=== PATIENT | female | born 1940 | race Caucasian/White ===

== ENCOUNTER 2018-01-31 10:32 | Inpatient (IN) | payer MEDICARE, MEDICAID ==
[~2018-01-31] VITALS: Ht 167.6 cm; Wt 116.3 kg
[~2018-01-31 10:32] MED LIST: ALDACTONE50 M1; ALLOPURINOL100 MG PO; ATENOLOL100 MG; ATENOLOL100 MG PO; BUMETANIDE1 MG PO; BUMEX; CIPROFLOXACN500 MG PO; CYMBALTA60 MG PO; GABAPENTIN300 MG; GABAPENTIN300 MG PO; HUMALOG100 MG/ML; HUMALOG100 UNIT/M SC; LANTUS100 MG/ML; LANTUS100 MG/ML SC; LORTAB 7.5; METOCLOPRAM5 MG PO; NORVASC2.5 MG PO; NORVASC5 MG; OMEPRAZOLE20 M2 PO; PEPCID20 MG; PHENERGAN25 MG/TAB PO; SYNTHROID50 MCG; SYNTHROID75 MCG PO; TRAMADOL HCL50 MG; WARFARIN10 MG PO; WARFARIN2.5 MG PO; WARFARIN5 MG; WARFARIN5 MG PO; WELLBUTRIN75 MG; ZOLOFT100 MG
[2018-01-31] MEDS ORDERED: DILTIAZEM PO (10:50)
[2018-01-31] MEDS ORDERED: PEPCID20 MG PO (10:51)
[2018-01-31] MEDS ORDERED: NOVOLOG MIX SC (10:52)
[2018-01-31] MEDS ORDERED: LEVOTHYROXIN50 MCG PO (10:53)
[2018-01-31] MEDS ORDERED: SEROQUEL25 MG PO (10:53)
[2018-01-31 11:31] LABS: HEMATOCRIT 35.1 % (37.0-47.0); HEMOGLOBIN 10.6 g/dl (12.0-16.0); IMMATURE GRANULOCYTES 0.6 % (0.0-1.0); MEAN CELL VOLUME 92.6 fL CALC (80.0-100.0); MEAN CORPUSCULAR HGB CONC 30.2 g/L CALC (32.0-36.0); NEUT# 7.23 thou/uL (2.00-7.15); RED BLOOD COUNT 3.79 mill/uL (4.20-5.60); RED CELL DISTRI WIDTH 16.5 % (11.5-15.5)
[2018-01-31 11:47] LABS: INTERNATIONAL NORMALIZED RATIO 1.8 RATIO (0.7-1.3); PROTHROMBIN TIME 20.2 SECONDS (9.0-12.5)
[2018-01-31 12:03] LABS: ALBUMIN 3.9 g/dL (3.2-5.0); BILIRUBIN, TOTAL 0.8 mg/dL (0.0-1.4); CREATININE 1.2 mg/dL (0.5-1.0); POTASSIUM 4.2 mmol/l (3.5-5.1); TOTAL PROTEIN 7.4 g/dL (6.3-8.2)
[2018-01-31 14:50] VITALS: BP 138/56
[2018-01-31 16:12] LABS: INFLUENZA A NONE DETECTED (NONE DETECT); INFLUENZA B NONE DETECTED (NONE DETECT)
[2018-01-31 16:22] VITALS: BP 122/56
[2018-01-31 19:10] VITALS: BP 129/66
[2018-01-31 20:01] LABS: URINE BILIRUBIN - DIPSTICK NEGATIVE (NEGATIVE); URINE BLOOD DIPSTICK NEGATIVE (NEGATIVE); URINE COLOR YELLOW; URINE GLUCOSE - DIPSTICK NEGATIVE (NEGATIVE); URINE KETONE NEGATIVE (NEGATIVE); URINE LEUK ESTERASE NEGATIVE (Negative); URINE NITRITE - DIPSTICK NEGATIVE (Negative); URINE PROTEIN - DIPSTICK NEGATIVE (NEG-TRACE); URINE UROBILINOGEN - DIPSTICK 0.2 E.U./dL (0.2)
[2018-01-31 20:12] LABS: URINE CLARITY CLEAR
[2018-01-31 23:05] VITALS: BP 140/71
[2018-02-01 04:25] VITALS: BP 127/63
[2018-02-01 05:00] LABS: HEMATOCRIT 32.6 % (37.0-47.0); IMMATURE GRANULOCYTES 0.9 % (0.0-1.0); MEAN CELL VOLUME 91.3 fL CALC (80.0-100.0); MEAN CORPUSCULAR HGB CONC 30.7 g/L CALC (32.0-36.0); NEUT# 8.48 thou/uL (2.00-7.15); RED BLOOD COUNT 3.57 mill/uL (4.20-5.60); RED CELL DISTRI WIDTH 16.4 % (11.5-15.5)
[2018-02-01 05:18] LABS: INTERNATIONAL NORMALIZED RATIO 1.8 RATIO (0.7-1.3); PROTHROMBIN TIME 20.2 SECONDS (9.0-12.5)
[2018-02-01 05:21] LABS: ALBUMIN 3.7 g/dL (3.2-5.0); ALKALINE PHOSPHATASE 98 u/l (38-126); ANION GAP 20 (6-22 (CALC)); BILIRUBIN, TOTAL 0.6 mg/dL (0.0-1.4); BUN 23 mg/dL (8-23); BUN/CREATININE RATIO 23 (12-20 (CALC)); CARBON DIOXIDE 26 mmol/l (22-30); CHLORIDE 102 mmol/l (95-108); GFR 54 ML/MIN (>=60 (CALC)); GFR FOR AFR.AMER. > 60 ML/MIN (>=60 (CALC)); POTASSIUM 3.9 mmol/l (3.5-5.1); SGOT/AST 35 u/l (9-36); SGPT/ALT 35 u/l (11-66); SODIUM 144 mmol/l (137-146)
[2018-02-01 07:34] VITALS: BP 116/57
[2018-02-01 11:35] VITALS: BP 119/63
[2018-02-01 16:00] VITALS: BP 110/52
[2018-02-01 19:15] VITALS: BP 113/64
[2018-02-02 00:47] VITALS: BP 134/66
[2018-02-02 04:12] VITALS: BP 122/63
[2018-02-02 05:08] LABS: HEMATOCRIT 31.3 % (37.0-47.0); HEMOGLOBIN 9.7 g/dl (12.0-16.0); IMMATURE GRANULOCYTES 0.9 % (0.0-1.0); MEAN CORPUSCULAR HGB 28.2 pG CALC (26.0-32.0); NEUT# 12.98 thou/uL (2.00-7.15); RED BLOOD COUNT 3.44 mill/uL (4.20-5.60); RED CELL DISTRI WIDTH 16.6 % (11.5-15.5)
[2018-02-02 05:27] LABS: ALBUMIN 3.7 g/dL (3.2-5.0); BILIRUBIN, TOTAL 0.4 mg/dL (0.0-1.4); CREATININE 1.3 mg/dL (0.5-1.0); POTASSIUM 4.2 mmol/l (3.5-5.1)
[2018-02-02 05:40] LABS: INTERNATIONAL NORMALIZED RATIO 2.2 RATIO (0.7-1.3); PROTHROMBIN TIME 25.3 SECONDS (9.0-12.5)
[2018-02-02 08:10] VITALS: BP 115/55
[2018-02-02 11:00] VITALS: BP 106/43
[2018-02-02 15:38] VITALS: BP 101/40
[2018-02-02 17:34] LABS: INTERNATIONAL NORMALIZED RATIO 1.8 RATIO (0.7-1.3)
[2018-02-02 20:05] VITALS: BP 115/56
[2018-02-03 00:05] VITALS: BP 129/53
[2018-02-03 04:05] VITALS: BP 125/66
[2018-02-03 04:53] LABS: HEMATOCRIT 29.5 % (37.0-47.0); HEMOGLOBIN 9.1 g/dl (12.0-16.0); MEAN CELL VOLUME 91.6 fL CALC (80.0-100.0); MEAN CORPUSCULAR HGB 28.3 pG CALC (26.0-32.0); MEAN CORPUSCULAR HGB CONC 30.8 g/L CALC (32.0-36.0); NEUT# 11.72 thou/uL (2.00-7.15); RED BLOOD COUNT 3.22 mill/uL (4.20-5.60); RED CELL DISTRI WIDTH 16.7 % (11.5-15.5)
[2018-02-03 05:05] LABS: CHOLESTEROL HDL RATIO 2.7 (<4.4 (CALC)); CREATININE 1.3 mg/dL (0.5-1.0); MAGNESIUM 1.9 mg/dL (1.6-2.3); POTASSIUM 4.3 mmol/l (3.5-5.1)
[2018-02-03 07:43] VITALS: BP 125/41
[2018-02-03 09:14] LABS: INTERNATIONAL NORMALIZED RATIO 1.6 RATIO (0.7-1.3); PROTHROMBIN TIME 17.6 SECONDS (9.0-12.5)
[2018-02-03 11:36] VITALS: BP 111/45
[2018-02-03 15:13] VITALS: BP 135/63
[2018-02-03 19:56] VITALS: BP 136/70
[2018-02-04 00:03] VITALS: BP 126/45
[2018-02-04 04:22] VITALS: BP 129/58
[2018-02-04 05:01] LABS: HEMATOCRIT 29.8 % (37.0-47.0); HEMOGLOBIN 9.4 g/dl (12.0-16.0); IMMATURE GRANULOCYTES 1.7 % (0.0-1.0); MEAN CELL VOLUME 90.9 fL CALC (80.0-100.0); MEAN CORPUSCULAR HGB 28.7 pG CALC (26.0-32.0); MEAN CORPUSCULAR HGB CONC 31.5 g/L CALC (32.0-36.0); NEUT# 9.89 thou/uL (2.00-7.15); RED BLOOD COUNT 3.28 mill/uL (4.20-5.60); RED CELL DISTRI WIDTH 16.4 % (11.5-15.5)
[2018-02-04 05:14] LABS: INTERNATIONAL NORMALIZED RATIO 1.5 RATIO (0.7-1.3)
[2018-02-04 05:17] LABS: CREATININE 1.3 mg/dL (0.5-1.0); MAGNESIUM 1.7 mg/dL (1.6-2.3); POTASSIUM 4.2 mmol/l (3.5-5.1)
[2018-02-04 07:40] VITALS: BP 124/46
[2018-02-04 11:00] VITALS: BP 129/66
[2018-02-04] MEDS ORDERED: BUMETANIDE0.25 MG/ML PO (15:15)
[2018-02-04] MEDS ORDERED: MUCINEX600 MG PO (15:16)
[2018-02-04] MEDS ORDERED: BIOTUSSIN PO (15:16)
[2018-02-04] MEDS ORDERED: MEDDOSEPAK PO (15:17)
[2018-02-04] MEDS ORDERED: DOXYCYCL HYC100 MG PO (15:18)
[2018-02-04] MEDS ORDERED: BUMEX1 M1 PO (15:27)
== END 2018-02-04 16:30 | disposition home health service (06) | DRG 291 ==
LOC: ED 10:32 → ED-I 13:32 → ED 13:47 → MS2 13:48
PROVIDERS: Emergency Medicine; Nurse Practitioner; Nurse Practitioner Family; ADMIT Internal Medicine; ATTEND Internal Medicine
DX: I13.0 Hypertensive heart and chronic kidney disease with heart failure and stage 1 through stage 4 chronic kidney disease, or unspecified chronic kidney disease (principal); I50.23 Acute on chronic systolic (congestive) heart failure; J96.01 Acute respiratory failure with hypoxia; N17.9 Acute kidney failure, unspecified; J44.1 Chronic obstructive pulmonary disease with (acute) exacerbation; J20.9 Acute bronchitis, unspecified; J44.0 Chronic obstructive pulmonary disease with (acute) lower respiratory infection; E11.22 Type 2 diabetes mellitus with diabetic chronic kidney disease; E66.01 Morbid (severe) obesity due to excess calories; I27.20 Pulmonary hypertension, unspecified; Z68.41 Body mass index [BMI] 40.0-44.9, adult; E11.42 Type 2 diabetes mellitus with diabetic polyneuropathy; N18.3 Chronic kidney disease, stage 3 (moderate); G47.33 Obstructive sleep apnea (adult) (pediatric); I25.10 Atherosclerotic heart disease of native coronary artery without angina pectoris; E78.5 Hyperlipidemia, unspecified; D63.8 Anemia in other chronic diseases classified elsewhere; E03.9 Hypothyroidism, unspecified; I65.23 Occlusion and stenosis of bilateral carotid arteries; F32.9 Major depressive disorder, single episode, unspecified; I48.2 Chronic atrial fibrillation; M15.9 Polyosteoarthritis, unspecified; Z79.4 Long term (current) use of insulin; Z79.01 Long term (current) use of anticoagulants; Z95.0 Presence of cardiac pacemaker; Z99.3 Dependence on wheelchair; Z89.422 Acquired absence of other left toe(s); Z86.711 Personal history of pulmonary embolism; Z99.81 Dependence on supplemental oxygen; Z95.820 Peripheral vascular angioplasty status with implants and grafts; Z87.440 Personal history of urinary (tract) infections; Z89.421 Acquired absence of other right toe(s)
CPT/HCPCS: G0378

== ENCOUNTER 2018-06-25 08:59 | Outpatient (REF) | payer MEDICARE, MEDICAID ==
[~2018-06-25 08:59] MED LIST changes: +BIOTUSSIN PO; +BUMETANIDE0.25 MG/ML PO; +BUMEX1 M1 PO; +DILTIAZEM PO; +DOXYCYCL HYC100 MG PO; +LEVOTHYROXIN50 MCG PO; +MEDDOSEPAK PO; +MUCINEX600 MG PO; +NOVOLOG MIX SC; +PEPCID20 MG PO; +SEROQUEL25 MG PO
[2018-06-25 09:38] LABS: HEMATOCRIT 38.2 % (37.0-47.0); HEMOGLOBIN 12.6 g/dl (12.0-16.0)
--- NOTE | 2018-06-25 10:16 | NUR ---
Patient is here for Procrit injection Current Procrit dose held , Previous Procrit dose 20,000 units on 05/28/18 Current Hgb on 06/25/18 is 12.6 Previous Hgb on 06/11/18 was 11.5 Previous Iron study on 06/25/18 was 32% saturation and ferritin = pending Next Iron Study on 09/25/18 Next Hgb due on 09/25/18 Notes: No procrit was given today. Reassessment scheduled for 09/25/18. Blood pressure on 06/25/18 was 123/68. QOL assessment Side effects: No Dose adjustments: No New dose:
[2018-06-25 11:29] VITALS: BP 123/68
== END 2018-06-25 11:31 | disposition home or self-care (01) ==
LOC: INF 08:59
PROVIDERS: ATTEND Internal Medicine
DX: D63.1 Anemia in chronic kidney disease (principal); N18.3 Chronic kidney disease, stage 3 (moderate); D50.9 Iron deficiency anemia, unspecified

== ENCOUNTER → 2018-12-09 | Outpatient (REF) | payer MEDICARE, MEDICAID ==
[2018-12-09 10:47] LABS: CREATININE 1.1 mg/dL (0.5-1.0); POTASSIUM 4.6 mmol/l (3.5-5.1)
== END | disposition home or self-care (01) ==
LOC: LAB 09:42
PROVIDERS: ATTEND Internal Medicine
DX: I10 Essential (primary) hypertension (principal); R53.83 Other fatigue; E11.65 Type 2 diabetes mellitus with hyperglycemia

== ENCOUNTER 2019-03-19 09:58 | Inpatient (IN) | payer MEDICARE, MEDICAID ==
[~2019-03-19] VITALS: Ht 167.6 cm; Wt 122.1 kg
[2019-03-19] MEDS ORDERED: COUMADIN5 MG PO (10:42)
[2019-03-19] MEDS ORDERED: ALBUTEROL SUL0.083 % IN (10:43)
[2019-03-19] MEDS ORDERED: GABAPENTIN300 M2 PO (10:43)
[2019-03-19] MEDS ORDERED: SERTRALINE100 MG PO (10:44)
[2019-03-19] MEDS ORDERED: IPRATROPIUM BR0.02 % IN (10:45)
[2019-03-19] MEDS ORDERED: PRALUENT75 MG/ML SC (10:46)
[2019-03-19] MEDS ORDERED: ENTRESTO 24-261 TAB PO (10:47)
[2019-03-19] MEDS ORDERED: COREG25 MG PO (10:47)
[2019-03-19 11:10] LABS: HEMATOCRIT 29.7 % (37.0-47.0); HEMOGLOBIN 9.5 g/dl (12.0-16.0); IMMATURE GRANULOCYTES 0.7 % (0.0-5.0); MEAN CELL VOLUME 95.2 fL CALC (80.0-100.0); MEAN CORPUSCULAR HGB 30.4 pG CALC (26.0-32.0); NEUT# 6.5 thou/uL (2.00-7.15); RED BLOOD COUNT 3.12 mill/uL (4.20-5.60); RED CELL DISTRI WIDTH 14.6 % (11.5-15.5)
[2019-03-19 11:18] LABS: URINE BLOOD DIPSTICK SMALL (NEGATIVE); URINE COLOR YELLOW; URINE GLUCOSE - DIPSTICK NEGATIVE (NEGATIVE); URINE KETONE NEGATIVE (NEGATIVE); URINE LEUK ESTERASE MODERATE (NEGATIVE); URINE NITRITE - DIPSTICK POSITIVE (Negative); URINE PH 5.5 (4.5-8.0); URINE PROTEIN - DIPSTICK TRACE mg/dL (NEG-TRACE); URINE UROBILINOGEN - DIPSTICK 0.2 E.U./dL (0.2)
[2019-03-19 11:22] LABS: URINE BILIRUBIN - DIPSTICK NEGATIVE (NEGATIVE)
[2019-03-19 11:27] LABS: URINE BACTERIA MANY hpf; URINE WBC 50-100 WBC/hpf (0-5)
[2019-03-19 11:28] LABS: URINE RBC 0-2 RBC/hpf (0-5)
[2019-03-19 11:29] LABS: ALBUMIN 3.7 g/dL (3.2-5.0); BILIRUBIN, TOTAL 0.7 mg/dL (0.0-1.4); CREATININE 1.3 mg/dL (0.5-1.0); TOTAL PROTEIN 6.9 g/dL (6.3-8.2)
[2019-03-19 14:43] VITALS: BP 134/40
[2019-03-19 14:44] LABS: PROTHROMBIN TIME 139.2 SECONDS (9.0-12.5)
[2019-03-19 19:25] VITALS: BP 130/60
[2019-03-20] VITALS (11 sets, daily range): BP systolic 116–157; BP diastolic 35–62
[2019-03-20 06:01] LABS: HEMATOCRIT 28.2 % (37.0-47.0); HEMOGLOBIN 8.9 g/dl (12.0-16.0); IMMATURE GRANULOCYTES 0.5 % (0.0-5.0); MEAN CELL VOLUME 95.9 fL CALC (80.0-100.0); MEAN CORPUSCULAR HGB 30.3 pG CALC (26.0-32.0); MEAN CORPUSCULAR HGB CONC 31.6 g/L CALC (32.0-36.0); NEUT# 10.17 thou/uL (2.00-7.15); RED BLOOD COUNT 2.94 mill/uL (4.20-5.60); RED CELL DISTRI WIDTH 14.6 % (11.5-15.5)
[2019-03-20 06:02] LABS: BILIRUBIN, TOTAL 0.6 mg/dL (0.0-1.4); CREATININE 1.1 mg/dL (0.5-1.0); MAGNESIUM 1.7 mg/dL (1.6-2.3); POTASSIUM 3.8 mmol/l (3.5-5.1); TOTAL PROTEIN 5.9 g/dL (6.3-8.2)
[2019-03-20 09:46] LABS: INTERNATIONAL NORMALIZED RATIO > 29.6 RATIO (0.7-1.3); PROTHROMBIN TIME > 300.0 SECONDS (9.0-12.5)
[2019-03-21 00:27] VITALS: BP 119/49
[2019-03-21 03:51] VITALS: BP 150/61
[2019-03-21 05:04] LABS: HEMATOCRIT 25.7 % (37.0-47.0); HEMOGLOBIN 8.2 g/dl (12.0-16.0); IMMATURE GRANULOCYTES 0.9 % (0.0-5.0); MEAN CORPUSCULAR HGB 30.9 pG CALC (26.0-32.0); MEAN CORPUSCULAR HGB CONC 31.9 g/L CALC (32.0-36.0); NEUT# 8.28 thou/uL (2.00-7.15); RED BLOOD COUNT 2.65 mill/uL (4.20-5.60); RED CELL DISTRI WIDTH 14.2 % (11.5-15.5)
[2019-03-21 05:22] LABS: ANION GAP 12 (6-22 (CALC)); BUN 25 mg/dL (8-23); BUN/CREATININE RATIO 24 (12-20 (CALC)); CARBON DIOXIDE 24 mmol/l (22-30); CHLORIDE 109 mmol/l (95-108); GFR 53 ML/MIN (>=60 (CALC)); GFR FOR AFR.AMER. > 60 ML/MIN (>=60 (CALC)); MAGNESIUM 1.7 mg/dL (1.6-2.3); POTASSIUM 3.6 mmol/l (3.5-5.1); SODIUM 141 mmol/l (137-146)
[2019-03-21 05:25] LABS: INTERNATIONAL NORMALIZED RATIO 1.4 RATIO (0.7-1.3); PROTHROMBIN TIME 14.6 SECONDS (9.0-12.5)
[2019-03-21 07:53] VITALS: BP 134/57
[2019-03-21 11:08] LABS: ALBUMIN 2.9 g/dL (3.2-5.0); TOTAL PROTEIN 5.8 g/dL (6.3-8.2)
[2019-03-21 11:09] LABS: AMYLASE 139 u/l (30-110); BILIRUBIN, TOTAL 1.2 mg/dL (0.0-1.4); LIPASE 196 u/l (23-300)
[2019-03-21 11:17] VITALS: BP 118/49
[2019-03-21 14:36] VITALS: BP 113/48
[2019-03-21 19:05] VITALS: BP 135/58
[2019-03-22 00:16] VITALS: BP 117/56
[2019-03-22 04:22] VITALS: BP 133/50
[2019-03-22 05:29] LABS: HEMATOCRIT 23.9 % (37.0-47.0); HEMOGLOBIN 7.6 g/dl (12.0-16.0); IMMATURE GRANULOCYTES 0.9 % (0.0-5.0); MEAN CORPUSCULAR HGB 30.5 pG CALC (26.0-32.0); MEAN CORPUSCULAR HGB CONC 31.8 g/L CALC (32.0-36.0); NEUT# 6.11 thou/uL (2.00-7.15); RED BLOOD COUNT 2.49 mill/uL (4.20-5.60); RED CELL DISTRI WIDTH 14.2 % (11.5-15.5)
[2019-03-22 05:37] LABS: ALBUMIN 2.6 g/dL (3.2-5.0); BILIRUBIN, TOTAL 0.9 mg/dL (0.0-1.4); CREATININE 1.2 mg/dL (0.5-1.0); POTASSIUM 3.2 mmol/l (3.5-5.1); TOTAL PROTEIN 5.4 g/dL (6.3-8.2)
[2019-03-22 05:41] LABS: AMYLASE 38 u/l (30-110); LIPASE 95 u/l (23-300)
[2019-03-22 05:42] LABS: INTERNATIONAL NORMALIZED RATIO 1.2 RATIO (0.7-1.3); PROTHROMBIN TIME 12.7 SECONDS (9.0-12.5)
[2019-03-22 09:09] VITALS: BP 116/72
[2019-03-22 12:00] VITALS: BP 128/42
[2019-03-22 13:17] LABS: HEMOGLOBIN 8.7 g/dl (12.0-16.0)
[2019-03-22 16:00] VITALS: BP 126/53
[2019-03-22 19:35] VITALS: BP 149/58
[2019-03-23 00:10] VITALS: BP 144/52
[2019-03-23 03:30] VITALS: BP 132/54
[2019-03-23 05:21] LABS: HEMATOCRIT 24.2 % (37.0-47.0); HEMOGLOBIN 7.9 g/dl (12.0-16.0); IMMATURE GRANULOCYTES 1.3 % (0.0-5.0); MEAN CELL VOLUME 93.8 fL CALC (80.0-100.0); MEAN CORPUSCULAR HGB 30.6 pG CALC (26.0-32.0); MEAN CORPUSCULAR HGB CONC 32.6 g/L CALC (32.0-36.0); NEUT# 4.54 thou/uL (2.00-7.15); RED BLOOD COUNT 2.58 mill/uL (4.20-5.60); RED CELL DISTRI WIDTH 14.1 % (11.5-15.5)
[2019-03-23 05:51] LABS: ALBUMIN 2.7 g/dL (3.2-5.0); BILIRUBIN, TOTAL 0.8 mg/dL (0.0-1.4); CREATININE 1.3 mg/dL (0.5-1.0); MAGNESIUM 1.6 mg/dL (1.6-2.3); POTASSIUM 3.1 mmol/l (3.5-5.1); TOTAL PROTEIN 5.5 g/dL (6.3-8.2)
[2019-03-23 08:00] VITALS: BP 120/73
[2019-03-23 11:49] VITALS: BP 115/44
== END 2019-03-23 16:00 | disposition home or self-care (01) | DRG 439 ==
LOC: ED 09:58 → ED-I 12:30 → ED 12:41 → MS2 12:51
PROVIDERS: Family Medicine; Nurse Practitioner Family; ADMIT Internal Medicine Nephrology; ATTEND Internal Medicine Nephrology
PROC: 30233K1 Transfusion of Nonautologous Frozen Plasma into Peripheral Vein, Percutaneous Approach (ICD-10-PCS; principal; 2019-03-20)
PROC: 30233K1 Transfusion of Nonautologous Frozen Plasma into Peripheral Vein, Percutaneous Approach (ICD-10-PCS; 2019-03-20)
DX: K85.10 Biliary acute pancreatitis without necrosis or infection (principal); N39.0 Urinary tract infection, site not specified; I13.0 Hypertensive heart and chronic kidney disease with heart failure and stage 1 through stage 4 chronic kidney disease, or unspecified chronic kidney disease; N17.9 Acute kidney failure, unspecified; I50.22 Chronic systolic (congestive) heart failure; L97.318 Non-pressure chronic ulcer of right ankle with other specified severity; Z68.41 Body mass index [BMI] 40.0-44.9, adult; K80.70 Calculus of gallbladder and bile duct without cholecystitis without obstruction; N18.3 Chronic kidney disease, stage 3 (moderate); E11.22 Type 2 diabetes mellitus with diabetic chronic kidney disease; E11.622 Type 2 diabetes mellitus with other skin ulcer; E11.51 Type 2 diabetes mellitus with diabetic peripheral angiopathy without gangrene; E11.40 Type 2 diabetes mellitus with diabetic neuropathy, unspecified; D63.8 Anemia in other chronic diseases classified elsewhere; J44.9 Chronic obstructive pulmonary disease, unspecified; E03.9 Hypothyroidism, unspecified; N20.0 Calculus of kidney; R79.1 Abnormal coagulation profile; B37.2 Candidiasis of skin and nail; T45.515A Adverse effect of anticoagulants, initial encounter; I25.10 Atherosclerotic heart disease of native coronary artery without angina pectoris; I27.20 Pulmonary hypertension, unspecified; G47.33 Obstructive sleep apnea (adult) (pediatric); I48.0 Paroxysmal atrial fibrillation; E66.01 Morbid (severe) obesity due to excess calories; I08.1 Rheumatic disorders of both mitral and tricuspid valves; Z95.820 Peripheral vascular angioplasty status with implants and grafts; Z89.422 Acquired absence of other left toe(s); Z79.4 Long term (current) use of insulin; Z95.810 Presence of automatic (implantable) cardiac defibrillator; Z79.01 Long term (current) use of anticoagulants
CPT/HCPCS: J0692; J1650; Q9967

== ENCOUNTER 2020-04-24 10:34 | Inpatient (IN) | payer MEDICARE, MEDICAID ==
[~2020-04-24] VITALS: Ht 167.6 cm; Wt 120.0 kg
[~2020-04-24 10:34] MED LIST changes: +ALBUTEROL SUL0.083 % IN; +COREG25 MG PO; +COUMADIN5 MG PO; +ENTRESTO 24-261 TAB PO; +GABAPENTIN300 M2 PO; +IPRATROPIUM BR0.02 % IN; +PRALUENT75 MG/ML SC; +SERTRALINE100 MG PO
[2020-04-27 09:01] LABS: HEMATOCRIT 29.6 % (37.0-47.0); HEMOGLOBIN 8.8 g/dl (12.0-16.0); IMMATURE GRANULOCYTES 0.7 % (0.0-5.0); MEAN CELL VOLUME 92.8 fL CALC (80.0-100.0); MEAN CORPUSCULAR HGB 27.6 pG CALC (26.0-32.0); MEAN CORPUSCULAR HGB CONC 29.7 g/dL CAL (32.0-36.0); NEUT# 3.94 thou/uL (2.00-7.15); RED BLOOD COUNT 3.19 mill/uL (4.20-5.60); RED CELL DISTRI WIDTH 15.7 % (11.5-15.5)
[2020-04-27 09:30] VITALS: BP 156/56
--- NOTE | 2020-04-27 09:30 | NUR ---
PT ARRIVED TO UNIT VIA PERSON WHEELCHAIR DIRECT ADMIT FROM DR SHI OFFICE WITH DAUGHTER. STOOD AND PIVOTED TO BED; ALERT AND ORIENTED X 3. ASSISTED INTO GOWN AND BACK IN BED. C/O SOME PAIN TO LEFT FOOT; BILATERAL FEET HAVE ARIA WRAP DRESSINGS THAT ARE CDI. RESPIRATONS EVEN AND UNLABORED ON ROOM AIR. ASSESSMENT COMPLETE UPON ARRIVAL. VSS. ORIENTED TO ROOM AND CALL LIGHT SYSTEM. PLAN OF CARE DISCUSSED. PT ENCOURAGED TO VERBALIZE CONCERNS. STATES UNDERSTANDING. SAFETY MEASURES IN PLACE. CALL LIGHT WITHIN REACH.
[2020-04-27 09:50] LABS: INTERNATIONAL NORMALIZED RATIO 1.5 RATIO (0.7-1.3); PROTHROMBIN TIME 14.2 SECONDS (9.0-12.5)
[2020-04-27 09:53] LABS: ALBUMIN 3.6 g/dL (3.2-5.0); BILIRUBIN, TOTAL 0.5 mg/dL (0.0-1.4); C-REACTIVE PROTEIN 8.4 mg/dL (0-0.9); CREATININE 1.2 mg/dL (0.5-1.0); POTASSIUM 4.4 mmol/l (3.5-5.1); TOTAL PROTEIN 6.9 g/dL (6.3-8.2)
[2020-04-27 10:20] LABS: TSH, 3RD GENERATION 1.67 uIU/mL (0.47 - 4.68)
--- NOTE | 2020-04-27 10:33 | NUR ---
DR. BAUER AT BEDSIDE FOR DRESSING CHANGES TO BILATERAL FEET. PHOTOS TAKEN AND PLACED IN CHART. APPLIED IODINE, GAUZE, KERLEX, AND ARIA WRAP; ORDERS TO CHANGE DAILY. WRITTEN CONSENT FOR BEDSIDE DEBRIDEMENT OF DIABETIC FOOT ULCER.
--- NOTE | 2020-04-27 10:52 | NUR ---
OFF UNIT VIA STRETCHER TO RADIOLOGY FOR PICC LINE INSERTION.
--- NOTE | 2020-04-27 11:36 | NUR ---
BACK TO ROOM FROM RADIOLOGY. PICC LINE TO WILLIAMS; DRESSING CDI AND APPEARS HEALTHY.
[2020-04-27 12:00] VITALS: BP 125/40
--- NOTE | 2020-04-27 12:10 | NUR ---
OLU APPLIED AND PT EDUCATED; HAS URINARY INCONTINENCE. HEEL PROTECTORS ALSO APPLIED AND BLE OFFLOADED WITH PILLOWS.
[2020-04-27] MEDS ORDERED: LANTUS100 UNIT/M SC (13:19)
[2020-04-27] MEDS ORDERED: NOVOLOG100 UNIT/M (13:20)
--- NOTE | 2020-04-27 13:56 | NUR ---
ANTHROPOLOGY PROFESSOR AT BEDSIDE FOR EVAL AND ASSESSMENT.
--- NOTE | 2020-04-27 16:03 | NUR ---
S: ANA PAULA CAN is a 79 F who presents with Osteomyelitis. She has a history of Atrial fibrillation, CHF, T2 Diabetes, Hypothyroidism, COPD, Chronic kidney disease, HTN, Morbid obesity, Obstructive sleep apnea, Neuropathy, Irritable bowel syndrome. All medications in patient's chart were reviewed. O: VS: BP 125/40 mmHg, P 68 bpm, RR 18 breaths/min, T 96F W 120kg, AdjBW 83.6kg, HT66 inches, Scr= 1.2mg/dL, CrCl= 49.3ml/min P: Vancomycin ordered for pharmacy to dose. Start Vancomycin 1250mg IV Q24H. Vancomycin trough is drawn before the 4th dose on 04/30/20 at 1630. Vancomycin goal trough is between 15-20 mcg/ml. Pharmacy will follow and or advise on antibiotics use as needed.
--- NOTE | 2020-04-27 16:04 | NUR ---
DR. TRUJILLO AT VIRTUAL BEDSIDE FOR ID CONSULT.
--- NOTE | 2020-04-27 17:18 | NUR ---
VANCO INFUSING INTO WILLIAMS PICC LINE; FLUSHES WELL WITH GOOD BLOOD RETURN. PT ENCOURAGED TO REPOSITION SELF IN BED; WILL ASSIST WITH TURNING.
[2020-04-27 17:23] VITALS: BP 114/51
[2020-04-27 19:07] VITALS: BP 114/41
--- NOTE | 2020-04-28 02:58 | NUR ---
RESTING AWAKE IN BED AT SHIFT CHANGE BROWSING CELL PHONE. PUREWICK CATH IN PLACE, DRESSING TO BILATERAL HEELS IN PLACE. C/O LEFT HEEL PAIN TOLERABLE REFUSED PRN MEDICATION FOR PAIN. DURING NIGHT RESIDENTS CANISTER FELL AND URINE FELL ALL OVER FLOOR. HOUSEKEEPING CLEANED AREA.
[2020-04-28 05:16] VITALS: BP 107/44
[2020-04-28 05:52] LABS: HEMATOCRIT 28.8 % (37.0-47.0); HEMOGLOBIN 8.5 g/dl (12.0-16.0); MEAN CELL VOLUME 93.5 fL CALC (80.0-100.0); MEAN CORPUSCULAR HGB 27.6 pG CALC (26.0-32.0); MEAN CORPUSCULAR HGB CONC 29.5 g/dL CAL (32.0-36.0); RED BLOOD COUNT 3.08 mill/uL (4.20-5.60); RED CELL DISTRI WIDTH 15.9 % (11.5-15.5)
--- NOTE | 2020-04-28 05:55 | NUR ---
PT RESTING IN BED, EASILY AWAKEN WHEN ENTERING ROOM. PT PLEASANT.
[2020-04-28 06:15] LABS: CREATININE 1.4 mg/dL (0.5-1.0); POTASSIUM 4.3 mmol/l (3.5-5.1)
[2020-04-28 06:32] LABS: MAGNESIUM 2.1 mg/dL (1.6-2.3)
--- NOTE | 2020-04-28 07:45 | NUR ---
DR SANTOS AT BEDSIDE DISCUSSING POC WITH PT
[2020-04-28 07:52] VITALS: BP 132/37
--- NOTE | 2020-04-28 07:52 | NUR ---
RECIEVED REPORT FROM Lionel SPEARS. PT RESTING IN LOW DOWLERS POSITIION UPON ENTERING ROOM. INTRODUED SELF TO PT AND DISSCUSSED POC. ASSESSMENT AND VITALS COMPLETED AT THIS TIME. BP 132/37, HR 70, 02 98% ON ROOM AIR. RESPIRATIONS ARE EVEN AND UNLABROED WIHT NO SIGNS OF DISTRESS. LUNG SOUNDS ARE CLEAR, HEART RHYTHM NORMAL, PT DOES PRESENT WITH PACEMAKER. BOWEL SOUNDS ARE ACTIVE IN ALL QUADRANTS. RADIAL AND PEDAL PULSES ARE STRONG WITH NORMAL CAPILLARY REFILL. SINGLE LUMEN PIC IN WILLIAMS, PIC WAS GOOD BLOOD FLOW AND APPEARS TO BE PATENT. SKIN IS WARM AND DRY. PT PRESENTS WITH BILATERAL DIABETIC FOOT ULCERS. DRESSINGS ARE CDI AT THIS TIME. PT COMPLAINS OF 6/10 PAIN, TYLENOL TO BE ADMINISTERD.INFORMED PT OF HOME MEDICATIONENTRESO THAT WAS NEEDED TO BE BROUGHT IN, PT VERBALIZED UNDERSTANDING AND SAID HER DAUGHTER WOULD BE BRINGING IT. PT DENIES OF ANY OTHER PAINS OR DISCOMFORTS AT THIS TIME. ALL SAFTEY PRECAUTIONS ARE IN PLACE WITH CALL LIGHT IN REACH. WILL CONTINUE TO MONITOR
--- NOTE | 2020-04-28 08:07 | NUR ---
DR LAY AT [facility] POC
--- NOTE | 2020-04-28 11:01 | NUR ---
REASSESSMEN TOF PAIN AT THIS TIME. RESULTING IN 11/29. RESPIARTIONS ARE EVEN AND UNLABROED WITH NO SIGNS OF DISTRESS. ALL SAFETY PRECAUTIONS ARE IN PLACE WITH CALL LIGHT IN REACH. WILL CONTINUE TO MONITOR
--- NOTE | 2020-04-28 12:00 | NUR ---
PT SLEEPING IN LOW FOWLERS POSITION. RESPIRATIONS ARE EVEN AND UNLABORED WITH NO SIGNS OF DISTRESS. NO SIGNS OF ANY PAIN OR DISCOMFORTS. ALL SAFETY PRECAUTIONS IN PLACE WITH CALL LIGHT IN REACH.
[2020-04-28 15:21] VITALS: BP 129/67
--- NOTE | 2020-04-28 16:02 | NUR ---
PT SLEEPING IN LOW FOWLERS. RESPIRATIONS EVEN AND UNLABORED WITH NO SIGNS OF DISTRESS. NO SIGNS OF ANY PAIN. ALL SAFETY PRECAUTIONS IN PLACE.CALL LIGHT IN REACH.
[2020-04-28 20:02] VITALS: BP 105/46
--- NOTE | 2020-04-28 20:45 | NUR ---
PT AWAKE IN BED. ALERT AND ORIENTED. REQUIRES ASSIST X1 WITH CARE.
[2020-04-29 04:02] VITALS: BP 95/57
[2020-04-29 06:08] LABS: INTERNATIONAL NORMALIZED RATIO 1.2 RATIO (0.7-1.3); PROTHROMBIN TIME 11.6 SECONDS (9.0-12.5)
[2020-04-29 06:15] LABS: CREATININE 1.7 mg/dL (0.5-1.0); POTASSIUM 4.1 mmol/l (3.5-5.1)
--- NOTE | 2020-04-29 06:18 | NUR ---
PT RESTING WELL IN BED. EASILY AWAKEN WHEN ENTERING ROOM. DRESSING CHANGES TO BILATERAL FEET.
[2020-04-29 07:53] VITALS: BP 102/47
--- NOTE | 2020-04-29 07:57 | NUR ---
RECIEVED REPORT FROM WAYNE LOTT. PT RESTING IN SEMI FOWLERS POSITION UPON ENTERING ROOM.INTROUCED SELF TO PT AND DISCUSSED POC. ASSESSMENT AND VITALS COMPLETED. RESPIRATIONS ARE EVEN AND UNLABORED WITH NO SIGNS OF DSITRESS. LUNG SOUNDS ARE CLEAR. HEART RHYTHM IS NORMAL. BOWEL SOUNDS ARE ACTIVE IN ALL QUADRANTS, LAST REPORTED BM 04/26/20, OFFERED MOM TO ASSIST WITH BM. PT REFUSED. RADIAL PULSES ARE STRONG WITH NORMAL CAPILLARY REFILL. UNABLE TO FEEL PEDAL PULSES DUE TO DRESSINGS. PT PRESETS WITH BILATERAL DIABETIC OSTEOMYELITIS. DRESSINGS ARE CDI. PT HAS AMPUTATED TOES ON LEFT FOOT. SKIN IS WARM AND DRY WITH DISCOLORATION TO BLL. PT COMPLAINS OF 7/10 PAIN IN HEELS, TYLENOL TO BE ADMINSTERED. HEEL PROTECTORS APPLIED AND LEGS ELVATED WITH PILLOWS. PT DENIES ANY OTHER PAINS OR DISCOMFORTS.ALL SAFETY PREACUTIONS ARE IN PLACE WITH CALL LIGHT IN REACH. WILL CONTINUE TO MONITOR
--- NOTE | 2020-04-29 08:00 | NUR ---
ATTEMPTED TO FLUSH PICC LINE BY BOTH TITO AND MARSHA Vigil RN. UNSUCCESSFUL. 1V PORTABKLE CHEST X RAY ORDERED. JAGDISH ANRP NOTIFIED.
--- NOTE | 2020-04-29 12:00 | NUR ---
IV CHEST X RAY CONFIRMED PLACEMENT OF PICC. CATHFLO TO BE ADMINISTERED. RESPIRATIONS ARE EVEN AND UNLABROED WITH NO SIGNS OF DISTRESS. ALL SAFETY PRECAURIONS ARE IN PLACE WITH CALL LIGHT IN REACH. WILL CONTINUE TO MONITOR
--- NOTE | 2020-04-29 13:32 | NUR ---
BHAVESH ADMINISTERED BY MARILU TO ASSIST IN PICC .
[2020-04-29 14:59] VITALS: BP 107/47
--- NOTE | 2020-04-29 15:38 | NUR ---
PT SLEEPING IN SEMI FOWLERS POSITION. RESPIRATIONS EVEN AND UNLABORED WITH NO SIGNS OF DISTRESS. NO SIGNS OF ANY PAIN OR DISCOMFORTS. ALL SAFTY PRECAUTIONS ARE IN PLACE WITH CALL LIGHT IN REACH. WILL CONTINUE TO MONITOR
[2020-04-29 19:28] VITALS: BP 95/42
--- NOTE | 2020-04-29 22:00 | NUR ---
PT AWAKE IN LAYING IN BED. DENIES ANY PAIN AT TIME OF WRITING. G.ho.st PATENT. WILL CONTINUE TO MONITOR FOR ANY NEW CHANGES IN CONDITION.
[2020-04-30] VITALS (9 sets, daily range): BP systolic 92–124; BP diastolic 40–53
--- NOTE | 2020-04-30 04:28 | NUR ---
PT RESTINGT IN BED WELL WITH CPAP IN PLACE. NO C/O PAIN AT THIS TIME. WILL CONTINUE TO MONITOR FOR ANY NEW CHANGES IN CONDITION.
[2020-04-30 04:47] LABS: HEMATOCRIT 25.3 % (37.0-47.0); HEMOGLOBIN 7.7 g/dl (12.0-16.0); MEAN CELL VOLUME 90.7 fL CALC (80.0-100.0); MEAN CORPUSCULAR HGB 27.6 pG CALC (26.0-32.0); MEAN CORPUSCULAR HGB CONC 30.4 g/dL CAL (32.0-36.0); RED BLOOD COUNT 2.79 mill/uL (4.20-5.60); RED CELL DISTRI WIDTH 15.7 % (11.5-15.5)
[2020-04-30 05:15] LABS: BILIRUBIN, TOTAL 0.3 mg/dL (0.0-1.4); CREATININE 1.9 mg/dL (0.5-1.0); POTASSIUM 3.8 mmol/l (3.5-5.1); TOTAL PROTEIN 5.8 g/dL (6.3-8.2)
[2020-04-30 05:24] LABS: ALBUMIN 2.8 g/dL (3.2-5.0)
--- NOTE | 2020-04-30 08:07 | NUR ---
PT SITTING IN BED. A&O X3. NO DISTRESS NOTED. DRESSINGS TO BILATERAL FEET IN PLACE, CDI. REDDNESS NOTED WITH SLIGHT RASH TO BACK AND ARMS. BARRIER CREAM APPLIED TO BUTTOCKS AND BACK. PICC LINE IN PLACE TO WILLIAMS, FLUSHED AND ASPIRATED WITH EASE. PUREWICK IN PLACE. NO OTHER NEEDS AT THIS TIME. ASSESSMENT COMPLETED. DISCUSSED POC. CALL LIGHT IN REACH. CONTINUE TO MONITOR.
--- NOTE | 2020-04-30 13:30 | NUR ---
CITY ASSESSOR AT BEDSIDE OBTAINING VENIPUNCTURE FOR TYPE AND CROSS
--- NOTE | 2020-04-30 14:50 | NUR ---
CONSENT OBTAINED FOR TRANSUFSION OF BLOOD PRODUCT
--- NOTE | 2020-04-30 15:37 | NUR ---
BLOOD REC FROM JS, VERIFIED BLOOD COMPONENT AND PT
--- NOTE | 2020-04-30 15:45 | NUR ---
BLOOD TRANSFUSION INITIATED. BLOOD COMPONENT VERIFIED WITH MARILU ARIAS.
--- NOTE | 2020-04-30 18:18 | NUR ---
BLOOD TRANSUFSION COMPLETE. PT TOLERATED WELL. NO S/S OF REACTION. VSS. 123/50 , HR 73, RR 18, O2 @ 97% VIA RA
--- NOTE | 2020-04-30 20:30 | NUR ---
PT ASSESSMENT COMPLETED, IV FLUSHED, ANTIBIOTIC THERAPY COMPLETE AT THIS TIME.
--- NOTE | 2020-04-30 23:00 | NUR ---
PT MEDICATED ORDERS PROVIDE, POC DISCUSSED, PT PROVIDED SNACK AND CUP FOR HEARING AIDES/AIDE PROVIDED AT BEDSIDE. PT DENIES ANY OTHER NEEDS AT THIS TIME. IV ANTIBIOTIC THERAPY ADMINISTERED TO PICC TO WILLIAMS/SITE APPEARS HEALTHY.
[2020-05-01 04:00] VITALS: BP 97/42
--- NOTE | 2020-05-01 04:27 | NUR ---
PT MEDICATED W/SYNTHROID AND BLOOD DRAWN FOR LABS VIA PICC LINE, FLUSHED PATENT. PT BLOOD SUGAR CHECKED AT 94 VIA ACCU-CHECK.
[2020-05-01 05:22] LABS: HEMATOCRIT 26.3 % (37.0-47.0); HEMOGLOBIN 8.2 g/dl (12.0-16.0); IMMATURE GRANULOCYTES 0.6 % (0.0-5.0); MEAN CELL VOLUME 90.1 fL CALC (80.0-100.0); MEAN CORPUSCULAR HGB 28.1 pG CALC (26.0-32.0); MEAN CORPUSCULAR HGB CONC 31.2 g/dL CAL (32.0-36.0); NEUT# 7.02 thou/uL (2.00-7.15); RED BLOOD COUNT 2.92 mill/uL (4.20-5.60); RED CELL DISTRI WIDTH 15.3 % (11.5-15.5)
[2020-05-01 05:47] LABS: CREATININE 1.8 mg/dL (0.5-1.0); POTASSIUM 3.9 mmol/l (3.5-5.1)
[2020-05-01 05:52] LABS: INTERNATIONAL NORMALIZED RATIO 1.2 RATIO (0.7-1.3)
[2020-05-01 07:30] VITALS: BP 101/43
--- NOTE | 2020-05-01 07:30 | NUR ---
PT SLEEPING IN BED, HOME CPAP MACHINE IN PLACE. AWAKENED TO COMPLETE ASSESSMENT. PT STILL REDDENED IN APPEARANCE, WITH SLIGHT RASH NOTICED. DRESSING TO BILATERAL FEET CDI. PUREWICK IN PLACE. ASSESSMENT COMPLETED. DISCUSSED POC. CALL LIGHT IN REACH, CONTINUE TO MONITOR.
--- NOTE | 2020-05-01 09:32 | NUR ---
CALLED DR. VERDUZCO OFFICE REGARDING THIS PT. SPOKE TO WENDY AND GAVE INFORMATION ON THIS PT. WENDY STATED SHE WILL GIVE IT TO HIM DIRECTLY WHEN HE COMES OUT OF A ROOM.
--- NOTE | 2020-05-01 11:35 | NUR ---
PT note Patient is screened for PT intervention. I went ahead and spoke with her about transitional moovement. She expressed she did not want PT intervention at this time. I reviewed the importance of remaining mobile and she seemed to understand. She is contaent with being bed bound and or chairfast for now as she has too much painw with transititonal movements
--- NOTE | 2020-05-01 12:47 | NUR ---
DR TRUJILLO CONSULT IN PROGRESS
--- NOTE | 2020-05-01 13:54 | NUR ---
S: ANA PAULA CAN is a 79 F who presents with Osteomyelitis. . She has a history of atrial fibrillation, congestive heart failure, type 2 diabetes, hypothyroidism, COPD, HTN, morbid obesity, obstructive sleep apnea, neuropathy, and irritable bowel syndrome. All medications in patient's chart were reviewed. O: VS: BP 101/43 mmHg, P 71 bpm, RR 18 breaths/min, T 99.4 F W 120 kg, HT 167.64 cm, Scr= 1.8 mg/dL, CrCl= 49.2 ml/min A: P: Patient is on Ceftriaxone 2g IV Q24H. Vancomycin ordered for pharmacy to dose. Trough level 9 on 04/30/2020 Continue Vancomycin 1250 mg IV Q24H. Vancomycin trough is drawn before the 4th dose on 05/03/2020 1630. Vancomycin goal trough is between 10-20 mcg/ml. Pharmacy will follow and or advise on antibiotics use as needed.
[2020-05-01 15:00] VITALS: BP 91/25
--- NOTE | 2020-05-01 16:10 | NUR ---
PT SITTING IN BED. NO DISTRESS NOTED. CALL LIGHT IN REACH. CONTINUE TO MONITOR.
--- NOTE | 2020-05-01 19:00 | NUR ---
RECEIVED REPORT FROM NURSE GARCIA PATIENT LAYING IN BED, WATCHING TV, BREATHING EVEN UNLABORED, CALL LIGHT AT REACH.
[2020-05-01 19:08] VITALS: BP 115/31
--- NOTE | 2020-05-01 21:00 | NUR ---
PATIENT ALERT ORIENTED ABLE TO MAKE NEEDS KNONW, WITH SINGLE LUMEN PICC ON WILLIAMS PATENT FLUSHES WELL, HOOKED TO CPAP PATRICIA BREATHING EVEN UNLABORED, BS 139, C/O PAIN ON LEFT HEEL PRN TRAMADOL GIVEM WILL REEVALUATE.
--- NOTE | 2020-05-02 | NUR ---
PATIENT APPEARS STO BE SLEPPING WITH EYES CLOSED, BREATHING EVEN UNLABORED CALL LIGHT AT REACH.
[2020-05-02 04:10] VITALS: BP 100/44
--- NOTE | 2020-05-02 04:50 | NUR ---
PATIENT C/O OF ITCHINESS ON BOTH ARMS, WILL MEDEICATE, PATIENT AWAKE AT THIS TIME,DENIES PAIN CALL LIGHT AT REACH.
[2020-05-02 05:44] LABS: URINE BILIRUBIN - DIPSTICK NEGATIVE (NEGATIVE); URINE BLOOD DIPSTICK TRACE-INTACT (NEGATIVE); URINE CLARITY CLEAR; URINE COLOR YELLOW; URINE GLUCOSE - DIPSTICK NEGATIVE (NEGATIVE); URINE KETONE NEGATIVE (NEGATIVE); URINE LEUK ESTERASE NEGATIVE (Negative); URINE NITRITE - DIPSTICK NEGATIVE (Negative); URINE PH 5.5 (4.5-8.0); URINE PROTEIN - DIPSTICK NEGATIVE (NEG-TRACE); URINE UROBILINOGEN - DIPSTICK 0.2 E.U./dL (0.2)
[2020-05-02 05:50] LABS: HEMATOCRIT 27.1 % (37.0-47.0); HEMOGLOBIN 8.3 g/dl (12.0-16.0); MEAN CELL VOLUME 91.9 fL CALC (80.0-100.0); MEAN CORPUSCULAR HGB 28.1 pG CALC (26.0-32.0); MEAN CORPUSCULAR HGB CONC 30.6 g/dL CAL (32.0-36.0); RED BLOOD COUNT 2.95 mill/uL (4.20-5.60); RED CELL DISTRI WIDTH 15.7 % (11.5-15.5)
[2020-05-02 06:17] LABS: ALBUMIN 2.7 g/dL (3.2-5.0); BILIRUBIN, TOTAL 0.2 mg/dL (0.0-1.4); CREATININE 2.2 mg/dL (0.5-1.0); POTASSIUM 4.1 mmol/l (3.5-5.1); TOTAL PROTEIN 5.5 g/dL (6.3-8.2)
[2020-05-02 06:29] LABS: C-REACTIVE PROTEIN 20.6 mg/dL (0-0.9)
[2020-05-02 07:11] VITALS: BP 101/42
--- NOTE | 2020-05-02 07:11 | NUR ---
PT SITTING IN BED. A&O X3. NO DISTRESS NOTED. HOME CPAP IN PLACE. PT REPORTS NO PAIN AT THIS TIME. PUREWICK IN PLACE. REDDENED APPEARANCE STILL NOTED. BILATERAL FEET DRESSINGS IN PLACE CDI WITH DRESSING CHANGE DONE IN THE AM BY PREVIOUS SHIFT. NO OTHER NEEDS AT THIS TIME. ASSESSMENT COMPLETED. DISCUSSED POC. CALL LIGHT IN REACH. CONTINUE TO MONITOR.
[2020-05-02 07:31] LABS: INTERNATIONAL NORMALIZED RATIO 1.2 RATIO (0.7-1.3); PROTHROMBIN TIME 11.6 SECONDS (9.0-12.5)
--- NOTE | 2020-05-02 13:04 | NUR ---
PT SITTING IN BED. NO DISTRESS OR NEEDS AT THIS TIME. CALL LIGHT IN REACH. CONTINUE TO MONITOR.
[2020-05-02 15:16] VITALS: BP 115/45
--- NOTE | 2020-05-02 16:10 | NUR ---
PT SLEEPING IN BED. NO DISTRESS NOTED. RESP EVEN AND UNLABORED. CONTINUE TO MONITOR.
[2020-05-02 18:41] VITALS: BP 117/50
--- NOTE | 2020-05-02 19:06 | NUR ---
RECEIVED REPORT FROM NURSE GARCIA PATIENT RESTING IN BED,HOOKED TO O2 @2LPM VIA NC, BREATHING SHALLOW UNLABORED CALL LIGHT AT REACH.
--- NOTE | 2020-05-02 21:00 | NUR ---
PATIENT ALERT ORIENTED ABLE TO MAKE NEEDS KNOWN, WITH SINGLE LUMEN PICC ON WILLIAMS WITH AN ONGOING NS @ 75 CC/HR INFUSING WELL LBM 04/30, BS 124, PATIENT TURNED AND REPOSITIONED, PERICARE DONE.
--- NOTE | 2020-05-03 | NUR ---
PATIENT APPEARS TO BE SLEEPING WITH EYES CLOSED, HOOKED TO CPAP CALL LIGHT AT REACH.
--- NOTE | 2020-05-03 04:00 | NUR ---
PATIENT APPEARS TO BE SLEEPING WITH EYES CLOSED, WEARS CPAP, BREATHING UNLABORED CALL LIGHT AT REACH.
[2020-05-03 04:30] VITALS: BP 97/52
[2020-05-03 06:01] LABS: HEMOGLOBIN 8.2 g/dl (12.0-16.0); MEAN CELL VOLUME 91.8 fL CALC (80.0-100.0); MEAN CORPUSCULAR HGB 27.9 pG CALC (26.0-32.0); MEAN CORPUSCULAR HGB CONC 30.4 g/dL CAL (32.0-36.0); RED BLOOD COUNT 2.94 mill/uL (4.20-5.60); RED CELL DISTRI WIDTH 15.4 % (11.5-15.5)
[2020-05-03 06:30] LABS: POTASSIUM 4.2 mmol/l (3.5-5.1)
[2020-05-03 06:37] LABS: INTERNATIONAL NORMALIZED RATIO 1.2 RATIO (0.7-1.3); PROTHROMBIN TIME 12.3 SECONDS (9.0-12.5)
--- NOTE | 2020-05-03 07:30 | NUR ---
BLOOD SUGAR @ 52MG/DL, PATIENT IS ASYMPTOMATIC, AWAKE, NOT IN DISTRESS, PATIENT GIVEN ORANGE JUICE AND SNACK, WILL RECHECK BLOOD SUGAR.
[2020-05-03 08:11] VITALS: BP 105/56
--- NOTE | 2020-05-03 08:11 | NUR ---
RECIEVED REPORT FROM HUGO MANDEL. PT RESTING IN LOW FOWLERS POTIION UPON ENTERING . INTORDUCED SELF TO PT AND DISCUSSED POC. ASSESSMENT AND VITALS COMPLETED AT THIS TIME. RESPIRATIONS ARE EVEN AND UNLABORED WITH NO SIGNS OF DISTRESS. HEART RHYTHM IS NORMAL . BOWEL SOUNDS ACTIVE IN ALL QUADRANTS WITH LAST REPORTED BM 04/30/20. RADIAL PULSES ARE STRONG WITH NORMAL CAPILLARY REFILL. PEDAL PULSES UNABLE TO FEEL DUE TO DRESSINGS. DRESSINGS CDI AT THIS TIME. PT COMPLAINS OF 7/10 PAIN. ULTRAM TO BE ADMINISTERED WITH MORNING MEDS. PT PRESENTS TO REDNESS TO COCCYX. EDUCATED PT THAT WE NEED TO BE TURNING Q2H TO PREVENT SKIN BREAKDOWN. PT VERBLAIZED UNDERSTANDING. SINGLE LUMEN PICC RUNNING WITH NS AT 75 ORDERED, SITE APPEARS HEALTHY AND PATENT.ALL SAFETY PRECAUTIONS ARE IN PLACE WITH CALL LIGHT IN REACH. WILL CONTINUE TO MONITOR.
--- NOTE | 2020-05-03 09:49 | NUR ---
PT. Note Miss Rudolph was supine in bed upon arriving. Pt. did not agree to participate in therapy session. She stated im feeling tired, and old, I just want relax and not do therapy.
--- NOTE | 2020-05-03 10:52 | NUR ---
REASSESSMENT OF PAIN AT THIS TIME RESULTING IN 03/01. PT STATES THAT PAIN MEDICTAION IS WORKING AND SHES "OK". RESPIRTAIOINS ARE EVEN AND UNLABORED WITH NO SIGNS OF DISTRESS. all safetyu preacutions are in place with call light in REACH. EILL CONTINUE TO MONITOR
--- NOTE | 2020-05-03 12:00 | NUR ---
PT RESTING IN LOW FOWLERS POSITION WITH EYES CLOSED. RESPIRATIONS ARE EVEN AND UNLABORED WITH NO SIGNS OF DISTRESS. ALL SAFETY PRECAUTIONS ARE IN PLACE WITH CALL LIGHT IN REACH. WILL COTNINUE TO MONITOR
[2020-05-03 16:00] VITALS: BP 99/46
--- NOTE | 2020-05-03 16:00 | NUR ---
PT RSTING IN SEMI FOWLERS POSITION WITH EYES CLOSED. RESPIRATIONS ARE EVEN AND UNALBORED WITH NO SIGNS OF DISTRESS. ALL ASAFETY PRECAUTIONS ARE IN PLACE WITH CALL LIGHT IN REACH. WILL CONTINUE TO MONITOR
--- NOTE | 2020-05-03 17:01 | NUR ---
SUPERVISOR CENTRAL SUPPLY AT BEDSIDE AT THIS TIME.
--- NOTE | 2020-05-03 17:40 | NUR ---
PT note- attempted second eval. The patient adamantly refused stating she wanted no physical therapy at all.
[2020-05-03 18:54] VITALS: BP 120/50
--- NOTE | 2020-05-03 21:20 | NUR ---
PT RESTING IN BED, ALERT AND ORIENTED. RESPIRATIONS EVEN AND UNLABORED ON O2 @ 2L VIA NC. LUNGS SOUND DIMINISHED. PEDAL PULSES WEAK. PT DENIES ANY PAIN OR DISCOMFORT AT THIS TIME. CHANGED DRESSING TO LOWER EXTREMETIES, PER ORDERS. PT TOLERATED WELL. SAFETY PRECAUTIONS IN PLACE. WILL CONTINUE TO MONITOR.
--- NOTE | 2020-05-04 00:15 | NUR ---
PT RESTING IN BED, NO S/S OF DISTRESS AT THIS TIME. WILL CONTINUE TO MONITOR.
--- NOTE | 2020-05-04 04:01 | NUR ---
PT RESTING IN BED, FREE FROM DISTRESS AT THIS TIME.
[2020-05-04 05:07] VITALS: BP 111/54
[2020-05-04 06:04] LABS: HEMATOCRIT 30.1 % (37.0-47.0); IMMATURE GRANULOCYTES 1.3 % (0.0-5.0); MEAN CELL VOLUME 91.2 fL CALC (80.0-100.0); MEAN CORPUSCULAR HGB 27.3 pG CALC (26.0-32.0); MEAN CORPUSCULAR HGB CONC 29.9 g/dL CAL (32.0-36.0); RED BLOOD COUNT 3.3 mill/uL (4.20-5.60); RED CELL DISTRI WIDTH 15.4 % (11.5-15.5)
[2020-05-04 06:38] LABS: ALBUMIN 2.7 g/dL (3.2-5.0); CREATININE 1.8 mg/dL (0.5-1.0); POTASSIUM 4.8 mmol/l (3.5-5.1)
[2020-05-04 08:24] VITALS: BP 109/50
--- NOTE | 2020-05-04 08:24 | NUR ---
RECIEVED REPORT FROM HUGO LUKE. PT RESTING IN SEMI FOWLERS POSITION WITH EYES CLOSED UPON ENTERING ROOM. RESPIRATIONS ARE EVEN AND UNLABORED, PT DOES HAS WHEEZING WHEN JUST TALKING, PT DENIES ANY SOB. HEART RHYTHM IS NORMAL. BOWEL SOUNDS ARE ACTIVE IN ALL QUADRANTS, LAST REPORTED BM 08/. PT REFUSED ANY THING TO HELP ASSIST WITH BM . RADIAL PULSES ARE STRONG WITH NORMAL CAPILLARY REFILL. UNABKE TO PALPATE PEDAL PULSES DUE TO DRESSINGS. PT PRSENTS WITH DIABETIC BILATERAL OSTEOMYELITIS, DRESSING ARE CDI AT THIS TIME. PT HAS ALL TOES AMPUTATED FROM LEFT FOOT AND 2 TOES AMPUATTED FROM RIGH FOOT. SINGLE LUMEN PICC IN WILLIAMS, SITE APPEARS HEALTHY AND PATENT WITH GOOD BLOOD RETURN. PT COMPLAINS OG 6/10 PAIN IN BLL AND BACK, ULTRAM TO BE ADMINISTERED. PURER WHICH IN PLACE WITH SUCTION GOING. PT DENIES ANY OTHER PAINS OR DISCOMFORTS AT THIS TIME. ALL SAFETY PRECAUTIONS ARE IN PLACE WITHC ALL LIGHT IN REACH.WILL CONTINUE TO MONITOR
--- NOTE | 2020-05-04 08:39 | NUR ---
DR DONOVAN AT BEDSIDE DISCUSSING POC AT THIS TIME.
--- NOTE | 2020-05-04 10:45 | NUR ---
CHANGING OF DRESSINGS AT THIS TIME. WOUNDS CLEASED WITH NS AND IODINE, GAUZE PLACED AND WRAPPED WITH KRELEX AND ARIA WRAPPED ORDERED. PT TOLERATED WELL. BLL ELEVATED WITH PILLOWS AND PEEL PROTECTORS APPLIED. REASSESSMENT OF PAIN AT THIS TIME. RESULTING IN 12/30. PT DENIES ANY PAIN OR DISCOMFORTS AT THIS TIME. ALL SAFTEY PREACUTIONSA RE IN PLACE WITH CALL LIGHT IN REACH. WILL COTNINUE TO MONITOR
--- NOTE | 2020-05-04 12:18 | NUR ---
PT SITTING IN HIGH FOWLERS POSITION TURNED TO RIGH WIT PILLOWS UNDER BOTTOM TO ASSIST WITH REDDED COCCYX. PT EATING LUNCH AT THIS TIME. RESPIRATIONS ARE EVEN AND UNLABROED WIOTH NO SIGNS OF DISTRESS. PT DENIES ANY PAIN OR DISCOMFORTS AT THIS TIME. ALL SAEFTY PRECAUTIONS ARE IN PLACE WITH CALL LIGHT IN REACH. WILL CONTINUE TO MONITOR
--- NOTE | 2020-05-04 12:45 | NUR ---
DR CRAIG AT BEDSIDE DISCUSSING POC
[2020-05-04 14:38] LABS: INTERNATIONAL NORMALIZED RATIO 1.3 RATIO (0.7-1.3); PROTHROMBIN TIME 13.2 SECONDS (9.0-12.5)
[2020-05-04 15:44] VITALS: BP 105/47
--- NOTE | 2020-05-04 16:00 | NUR ---
PT RESTING IN SEMI FOWLERS POSITION WITH EYES CLSED. RESPIRATIONS ARE EVEN AND UNLABROED WITH NO SIGNS OF DISTESS. ALL SAFETY PRECAUTOINS ARE IN PLACE WITH CALL LIGHT IN RECH
[2020-05-04 19:00] VITALS: BP 115/52
--- NOTE | 2020-05-04 20:20 | NUR ---
PT RESTING IN BED, RESPIRATIONS EVEN AND UNLABORED ON RA. LUNGS SOUND DIMINISHED. PEDAL PULSES WEAK. PT REPORTS MODERATE GENERALIZED PAIN, PT TO BE MEDICATED PER EMAR ORDERS. PT GIVEN A CLEANED UP AND REPOSITONED, PERWICK IN PLACE, NYSTATIN POWDER APPLIED UNDER THE BREAST. ASSISTED PT WITH CPAP. SAFETY PRECAUTIONS IN PLACE. WILL CONTINUE TO MONITOR.
--- NOTE | 2020-05-05 00:36 | NUR ---
PT RESTING IN BED, NO S/S OF DISTRESS AT THIS TIME. SAFETY PRECAUTIONS IN PLACE. WILL CONTINUE TO MONITOR.
--- NOTE | 2020-05-05 04:25 | NUR ---
PT RESTING IN BED. PICC DRESSING CHANGED AT THIS TIME. PT TOLERATED WELL. SAFETY PRECAUTIONS IN PLACE. DRESSING APPLIED TO PT BOTTOM. WILL CONTINUE TO MONITOR.
[2020-05-05 04:49] VITALS: BP 113/55
[2020-05-05 05:28] LABS: HEMATOCRIT 25.7 % (37.0-47.0); HEMOGLOBIN 7.8 g/dl (12.0-16.0); MEAN CELL VOLUME 92.4 fL CALC (80.0-100.0); MEAN CORPUSCULAR HGB 28.1 pG CALC (26.0-32.0); MEAN CORPUSCULAR HGB CONC 30.4 g/dL CAL (32.0-36.0); RED BLOOD COUNT 2.78 mill/uL (4.20-5.60); RED CELL DISTRI WIDTH 15.4 % (11.5-15.5)
[2020-05-05 05:49] LABS: MAGNESIUM 2.3 mg/dL (1.6-2.3)
[2020-05-05 05:50] LABS: ALBUMIN 2.7 g/dL (3.2-5.0); CREATININE 1.5 mg/dL (0.5-1.0); POTASSIUM 4.4 mmol/l (3.5-5.1)
[2020-05-05 05:53] LABS: INTERNATIONAL NORMALIZED RATIO 1.5 RATIO (0.7-1.3); PROTHROMBIN TIME 14.7 SECONDS (9.0-12.5)
--- NOTE | 2020-05-05 08:30 | NUR ---
DR DONOVAN AT BEDSIDE DISCUSSING POC
[2020-05-05 08:38] VITALS: BP 135/52
--- NOTE | 2020-05-05 08:47 | NUR ---
RECIEVED REPORT FROM HUGO LUKE. PT IN HIGH FOWLERS POSITION EATING BREAKFAST UPON ENTERING ROOM. INTRODUCED SELF TO PT AND DISCUSSED POC. ASSESSMENT AND VITALS COMPLETED AT THIS TIME. RESPIRATIONS ARE EVEN AND UNLABORED WITH NO DISTRESS. LUNG SOUNDS ARE DIMINISHED, PT DENIES SOB. HEART RHYTHM IS NORMAL. BOWEL SOUNDS ARE ACTIVE IN ALL QUADRANTS, LAST REPORTED BM 05/04/20. PICC LINE IN URA FLUSHED WITH GOOD BLOOD RETURN. PT COMPLAINS OF 10/10 PAIN IN COCCYX, ULTRAM TO BE ADMINISTERED.DESSSING ON COCCYX CDI AT THIS TIME. PT PRESENTS WITH REDDNESS AND BREAKDOWN UNDER BREAST AND STOMACH FOLD, NYSTATIN TO BE APPLIED. PT DENIES ANY OTHER NEEDS OR CONCERNS AT THIS TIME. ALL SAFETY PRECAUTIONS ARE IN LACE WITHC ALL LIGHT IN REACH. WILL CONTINUE TO MONITOR
[2020-05-05 09:35] VITALS: BP 135/52
[2020-05-05] MEDS ORDERED: CUBICIN500 MG IV (11:44)
[2020-05-05] MEDS ORDERED: NYSTOP100000 UNI TOP (11:44)
[2020-05-05] MEDS ORDERED: COUMADIN5 MG PO (11:45)
--- NOTE | 2020-05-05 12:15 | NUR ---
PT RESTING IN SEMI FOWLERS POSITION WATCHING TV WITH DAUGHTER AT BEDSIDE. RESPIRATIONS ARE EVEN AND UNLABORE DWIHT NO SIGNS OF DISRES. ALL SAFTEY PRECAUTIONS ARE IN PLACE WITH CALL LIGHT IN REACH. WILL COTNINUE TO MONITOR
--- NOTE | 2020-05-05 13:54 | NUR ---
PT EDUCTAED ON DISCHARGE INSTRUCTIONS AND NEW MED; NYSTATIN, CUBICIN AND WARFARIN. PT VERBALIZED UNDERSTANDING. AWAITING FOR CASE MANAGMENT TO ARRANGE ORDERS FOR IV ANTIBIOTICS. ALL SAFETY PRECAUTIONS REMAIN IN PLACE WITH CALL LIGHT IN REACH. WILL CONTINUE TO MONITOR
--- NOTE | 2020-05-05 14:50 | NUR ---
Discharge instructions given. Patient verbalizes understanding of same. Discharged in stable condition via Wheelchair to Home with family. All belongings sent with pt. PT LEFT VIA WHEELCHAIR ACCOMPAINED BY MADHURI IN STABLE CONDITION . PT LEFT WITH ALL BELONGS INCLUDING CPAP ANND DISCHARGE INSTRUCTIONS
--- NOTE | 2020-05-05 15:35 | NUR ---
PT RESTING IN SEMI FOWLERS POSITION WATCHING TV WITH DAUGHTER AT BEDSIDE. RESPIRATIONS ARE EVEN AND UNALBROED WIHT NO ISGNS OF DSITRESS. ALLSAFTEY PREACIUTIONS ARE IN PLACE AWAITING FOR DISCHARGE INSTRUCTIONS AT THIS TIME. WILL CONTINUE TO MONITOR
== END 2020-05-05 14:50 | disposition home health service (06) | DRG 638 ==
LOC: MS2 04-27 08:18 → EDSTATUS 04-27 09:00 → DI 04-27 09:00 → MS2 05-01 13:18
PROVIDERS: Internal Medicine; Internal Medicine Nephrology; Nurse Practitioner; Nurse Practitioner Family; ADMIT Internal Medicine; ATTEND Internal Medicine
PROC: 02HV33Z Insertion of Infusion Device into Superior Vena Cava, Percutaneous Approach (ICD-10-PCS; principal; 2020-04-27)
PROC: B518ZZA Fluoroscopy of Superior Vena Cava, Guidance (ICD-10-PCS; 2020-04-27)
PROC: 0JDQ3ZZ Extraction of Right Foot Subcutaneous Tissue and Fascia, Percutaneous Approach (ICD-10-PCS; 2020-04-27)
PROC: 30233N1 Transfusion of Nonautologous Red Blood Cells into Peripheral Vein, Percutaneous Approach (ICD-10-PCS; 2020-04-30)
DX: E11.69 Type 2 diabetes mellitus with other specified complication (principal); M86.672 Other chronic osteomyelitis, left ankle and foot; M86.671 Other chronic osteomyelitis, right ankle and foot; I13.0 Hypertensive heart and chronic kidney disease with heart failure and stage 1 through stage 4 chronic kidney disease, or unspecified chronic kidney disease; Z68.41 Body mass index [BMI] 40.0-44.9, adult; L97.428 Non-pressure chronic ulcer of left heel and midfoot with other specified severity; L97.518 Non-pressure chronic ulcer of other part of right foot with other specified severity; L97.328 Non-pressure chronic ulcer of left ankle with other specified severity; L97.318 Non-pressure chronic ulcer of right ankle with other specified severity; E22.2 Syndrome of inappropriate secretion of antidiuretic hormone; E11.621 Type 2 diabetes mellitus with foot ulcer; E11.622 Type 2 diabetes mellitus with other skin ulcer; E11.51 Type 2 diabetes mellitus with diabetic peripheral angiopathy without gangrene; E11.22 Type 2 diabetes mellitus with diabetic chronic kidney disease; N18.3 Chronic kidney disease, stage 3 (moderate); I50.9 Heart failure, unspecified; E11.40 Type 2 diabetes mellitus with diabetic neuropathy, unspecified; L27.1 Localized skin eruption due to drugs and medicaments taken internally; T36.1X5A Adverse effect of cephalosporins and other beta-lactam antibiotics, initial encounter; T36.8X5A Adverse effect of other systemic antibiotics, initial encounter; N17.0 Acute kidney failure with tubular necrosis; I95.9 Hypotension, unspecified; E86.9 Volume depletion, unspecified; D63.1 Anemia in chronic kidney disease; I48.91 Unspecified atrial fibrillation; E03.9 Hypothyroidism, unspecified; J44.9 Chronic obstructive pulmonary disease, unspecified; E66.01 Morbid (severe) obesity due to excess calories; G47.33 Obstructive sleep apnea (adult) (pediatric); I25.10 Atherosclerotic heart disease of native coronary artery without angina pectoris; Z95.0 Presence of cardiac pacemaker; Z79.01 Long term (current) use of anticoagulants; Z79.4 Long term (current) use of insulin; Z89.412 Acquired absence of left great toe; Z89.422 Acquired absence of other left toe(s); Z95.820 Peripheral vascular angioplasty status with implants and grafts; Z88.0 Allergy status to penicillin; Z11.59 Encounter for screening for other viral diseases
CPT/HCPCS: G0378; G0379; J0878; J1650; J1756; J2997; J3370; P9016; Q3014; Q5106 EC

== ENCOUNTER 2022-12-26 11:52 | Inpatient (IN) | payer MEDICARE, MEDICAID ==
[~2022-12-26] VITALS: Ht 167.6 cm; Wt 109.7 kg
[2022-12-26] VITALS (12 sets, daily range): BP systolic 90–119; BP diastolic 38–68
[~2022-12-26 11:52] MED LIST changes: +CUBICIN500 MG IV; +LANTUS100 UNIT/M SC; +NOVOLOG100 UNIT/M; +NYSTOP100000 UNI TOP
[2022-12-26 13:18] LABS: URINE BILIRUBIN - DIPSTICK NEGATIVE (NEGATIVE); URINE BLOOD DIPSTICK NEGATIVE (NEGATIVE); URINE COLOR YELLOW; URINE GLUCOSE - DIPSTICK NEGATIVE (NEGATIVE); URINE KETONE NEGATIVE (NEGATIVE); URINE LEUK ESTERASE TRACE (NEGATIVE); URINE PH 5.5 (4.5-8.0); URINE PROTEIN - DIPSTICK NEGATIVE (NEG-TRACE); URINE UROBILINOGEN - DIPSTICK 0.2 E.U./dL (0.2)
[2022-12-26 13:23] LABS: BASO% 0.5 % (0-3); EOS% 3.7 % (0-8); HEMATOCRIT 31.2 % (37.0-47.0); HEMOGLOBIN 9.2 g/dl (12.0-16.0); IMMATURE GRANULOCYTES 0.5 % (0.0-5.0); LYMPH% 19.8 % (15-41); MEAN CELL VOLUME 93.4 fL CALC (80.0-100.0); MEAN CORPUSCULAR HGB 27.5 pG CALC (26.0-32.0); MEAN CORPUSCULAR HGB CONC 29.5 g/dL CAL (32.0-36.0); MONO% 6.4 % (2-13); NEUT# 5.71 thou/uL (2.00-7.15); NEUT% 69.1 % (42-76); RED BLOOD COUNT 3.34 mill/uL (4.20-5.60)
[2022-12-26 13:24] LABS: URINE NITRITE - DIPSTICK NEGATIVE (Negative)
[2022-12-26 13:35] LABS: POTASSIUM 4.9 mmol/l (3.5-5.1)
[2022-12-26 13:40] LABS: CREATININE 1.4 mg/dL (0.5-1.0)
[2022-12-26 13:41] LABS: ALBUMIN 3.6 g/dL (3.2-5.0); BILIRUBIN, TOTAL 0.3 mg/dL (0.02-1.3)
[2022-12-26] MEDS ORDERED: REMERON7.5 MG PO (14:07)
[2022-12-26 17:52] LABS: INTERNATIONAL NORMALIZED RATIO 2.7 RATIO (0.7-1.3); PROTHROMBIN TIME 25.5 SECONDS (9.0-12.5)
[2022-12-27] VITALS (7 sets, daily range): BP systolic 73–119; BP diastolic 32–58
[2022-12-27 05:47] LABS: BASO% 0.5 % (0-3); EOS% 4.1 % (0-8); HEMATOCRIT 27.3 % (37.0-47.0); HEMOGLOBIN 8.1 g/dl (12.0-16.0); IMMATURE GRANULOCYTES 0.5 % (0.0-5.0); LYMPH% 21.5 % (15-41); MEAN CELL VOLUME 94.5 fL CALC (80.0-100.0); MEAN CORPUSCULAR HGB CONC 29.7 g/dL CAL (32.0-36.0); MONO% 6.7 % (2-13); NEUT# 4.11 thou/uL (2.00-7.15); NEUT% 66.7 % (42-76); RED BLOOD COUNT 2.89 mill/uL (4.20-5.60)
[2022-12-27 06:02] LABS: INTERNATIONAL NORMALIZED RATIO 2.9 RATIO (0.7-1.3); PROTHROMBIN TIME 27.9 SECONDS (9.0-12.5)
[2022-12-27 06:09] LABS: BILIRUBIN, TOTAL 0.2 mg/dL (0.02-1.3); CREATININE 1.3 mg/dL (0.5-1.0); POTASSIUM 4.6 mmol/l (3.5-5.1); TOTAL PROTEIN 6.1 g/dL (6.3-8.2)
[2022-12-28 04:00] VITALS: BP 105/35
[2022-12-28 04:18] VITALS: BP 105/35
[2022-12-28 05:34] LABS: HEMATOCRIT 27.9 % (37.0-47.0); HEMOGLOBIN 8.4 g/dl (12.0-16.0); MEAN CELL VOLUME 93.6 fL CALC (80.0-100.0); MEAN CORPUSCULAR HGB 28.2 pG CALC (26.0-32.0); MEAN CORPUSCULAR HGB CONC 30.1 g/dL CAL (32.0-36.0); RED BLOOD COUNT 2.98 mill/uL (4.20-5.60)
[2022-12-28 05:51] LABS: ALBUMIN 3.2 g/dL (3.2-5.0); CREATININE 1.1 mg/dL (0.5-1.0); MAGNESIUM 2.1 mg/dL (1.6-2.3); POTASSIUM 4.7 mmol/l (3.5-5.1); TOTAL PROTEIN 6.5 g/dL (6.3-8.2)
[2022-12-28 06:10] LABS: BILIRUBIN, TOTAL 0.1 mg/dL (0.02-1.3)
[2022-12-28 19:00] VITALS: BP 109/29
[2022-12-28 19:27] VITALS: BP 109/29
[2022-12-29] VITALS (7 sets, daily range): BP systolic 99–125; BP diastolic 21–43
[2022-12-29 05:21] LABS: BASO% 0.5 % (0-3); HEMATOCRIT 27.4 % (37.0-47.0); IMMATURE GRANULOCYTES 0.5 % (0.0-5.0); LYMPH% 29.6 % (15-41); MEAN CELL VOLUME 93.8 fL CALC (80.0-100.0); MEAN CORPUSCULAR HGB 27.4 pG CALC (26.0-32.0); MEAN CORPUSCULAR HGB CONC 29.2 g/dL CAL (32.0-36.0); MONO% 8.2 % (2-13); NEUT# 3.71 thou/uL (2.00-7.15); NEUT% 57.2 % (42-76); RED BLOOD COUNT 2.92 mill/uL (4.20-5.60); RED CELL DISTRI WIDTH 16.1 % (11.5-15.5)
[2022-12-29 05:47] LABS: ALBUMIN 3.1 g/dL (3.2-5.0); BILIRUBIN, TOTAL 0.1 mg/dL (0.02-1.3); CREATININE 1.3 mg/dL (0.5-1.0); POTASSIUM 4.9 mmol/l (3.5-5.1); TOTAL PROTEIN 6.5 g/dL (6.3-8.2)
[2022-12-30] VITALS (7 sets, daily range): BP systolic 104–137; BP diastolic 30–48
[2022-12-30 05:47] LABS: INTERNATIONAL NORMALIZED RATIO 1.3 RATIO (0.7-1.3); PROTHROMBIN TIME 12.4 SECONDS (9.0-12.5)
[2022-12-30] MEDS ORDERED: ERTAPENEM1 GM IV (09:27)
[2022-12-31 00:33] VITALS: BP 137/54
[2022-12-31 04:05] VITALS: BP 129/47
[2022-12-31 05:32] LABS: HEMATOCRIT 27.7 % (37.0-47.0); HEMOGLOBIN 8.2 g/dl (12.0-16.0); MEAN CELL VOLUME 93.6 fL CALC (80.0-100.0); MEAN CORPUSCULAR HGB 27.7 pG CALC (26.0-32.0); MEAN CORPUSCULAR HGB CONC 29.6 g/dL CAL (32.0-36.0); RED BLOOD COUNT 2.96 mill/uL (4.20-5.60)
[2022-12-31 05:33] LABS: INTERNATIONAL NORMALIZED RATIO 1.2 RATIO (0.7-1.3); PROTHROMBIN TIME 11.9 SECONDS (9.0-12.5)
[2022-12-31 05:35] LABS: ALBUMIN 3.3 g/dL (3.2-5.0); CREATININE 1.5 mg/dL (0.5-1.0); MAGNESIUM 2.1 mg/dL (1.6-2.3); POTASSIUM 4.9 mmol/l (3.5-5.1); TOTAL PROTEIN 6.8 g/dL (6.3-8.2)
[2022-12-31 05:36] LABS: BILIRUBIN, TOTAL 0.3 mg/dL (0.02-1.3)
[2022-12-31 06:30] VITALS: BP 116/46
[2022-12-31 10:00] VITALS: BP 141/52
== END 2022-12-31 13:39 | disposition home health service (06) | DRG 690 ==
LOC: ED 11:52 → ED-I 12:55 → ED 13:23 → MS2 13:24
PROVIDERS: Family Medicine; Internal Medicine; Nurse Practitioner Family; ADMIT Internal Medicine; ATTEND Internal Medicine
PROC: 02HV33Z Insertion of Infusion Device into Superior Vena Cava, Percutaneous Approach (ICD-10-PCS; principal; 2022-12-31)
PROC: B518ZZA Fluoroscopy of Superior Vena Cava, Guidance (ICD-10-PCS; 2022-12-31)
DX: N39.0 Urinary tract infection, site not specified (principal); Z16.12 Extended spectrum beta lactamase (ESBL) resistance; I13.0 Hypertensive heart and chronic kidney disease with heart failure and stage 1 through stage 4 chronic kidney disease, or unspecified chronic kidney disease; E11.22 Type 2 diabetes mellitus with diabetic chronic kidney disease; I50.9 Heart failure, unspecified; N18.30 Chronic kidney disease, stage 3 unspecified; I48.91 Unspecified atrial fibrillation; I49.5 Sick sinus syndrome; E11.40 Type 2 diabetes mellitus with diabetic neuropathy, unspecified; I27.20 Pulmonary hypertension, unspecified; J44.9 Chronic obstructive pulmonary disease, unspecified; G47.33 Obstructive sleep apnea (adult) (pediatric); E66.01 Morbid (severe) obesity due to excess calories; E03.9 Hypothyroidism, unspecified; B96.1 Klebsiella pneumoniae [K. pneumoniae] as the cause of diseases classified elsewhere; Z86.711 Personal history of pulmonary embolism; Z95.0 Presence of cardiac pacemaker; Z89.432 Acquired absence of left foot; Z68.38 Body mass index [BMI] 38.0-38.9, adult; Z79.01 Long term (current) use of anticoagulants; Z79.4 Long term (current) use of insulin; Z20.822 Contact with and (suspected) exposure to COVID-19
CPT/HCPCS: J1335

== ENCOUNTER 2023-01-12 15:17 | Emergency (ER) | payer MEDICARE, MEDICAID ==
[2023-01-12] VITALS (20 sets, daily range): BP systolic 42–134; BP diastolic 18–108
[~2023-01-12] VITALS: Ht 167.6 cm; Wt 109.8 kg
[~2023-01-12 15:17] MED LIST changes: +ERTAPENEM1 GM IV; +LANTUS SOL100 UNIT/M SC; -LANTUS100 UNIT/M SC; +REMERON7.5 MG PO
[2023-01-12 17:14] LABS: BASO% 0.2 % (0-3); EOS% 2.9 % (0-8); HEMATOCRIT 27.3 % (37.0-47.0); HEMOGLOBIN 8.2 g/dl (12.0-16.0); IMMATURE GRANULOCYTES 0.4 % (0.0-5.0); LYMPH% 12.7 % (15-41); MEAN CELL VOLUME 90.4 fL CALC (80.0-100.0); MEAN CORPUSCULAR HGB 27.2 pG CALC (26.0-32.0); MONO% 5.7 % (2-13); NEUT# 6.25 thou/uL (2.00-7.15); NEUT% 78.1 % (42-76); RED BLOOD COUNT 3.02 mill/uL (4.20-5.60); RED CELL DISTRI WIDTH 16.3 % (11.5-15.5)
[2023-01-12 17:26] LABS: ALBUMIN 3.4 g/dL (3.2-5.0); BILIRUBIN, TOTAL 0.2 mg/dL (0.02-1.3); POTASSIUM 4.8 mmol/l (3.5-5.1)
[2023-01-12 17:27] LABS: CREATININE 4.4 mg/dL (0.5-1.0)
== END 2023-01-12 20:51 ==
LOC: ED 15:17
PROVIDERS: Family Medicine
DX: S00.81XA Abrasion of other part of head, initial encounter (principal); S00.03XA Contusion of scalp, initial encounter; I11.0 Hypertensive heart disease with heart failure; I50.9 Heart failure, unspecified; E11.9 Type 2 diabetes mellitus without complications; I48.91 Unspecified atrial fibrillation; I49.5 Sick sinus syndrome; W06.XXXA Fall from bed, initial encounter; Y92.122 Bedroom in nursing home as the place of occurrence of the external cause; Z86.711 Personal history of pulmonary embolism; Z95.0 Presence of cardiac pacemaker; Z79.4 Long term (current) use of insulin

== ENCOUNTER 2023-01-13 11:29 | Inpatient (IN) | payer MEDICARE, MEDICAID ==
[~2023-01-13] VITALS: Ht 167.6 cm; Wt 110.5 kg
[2023-01-13 12:01] LABS: BASO% 0.3 % (0-3); EOS% 2.5 % (0-8); HEMATOCRIT 26.9 % (37.0-47.0); HEMOGLOBIN 8.2 g/dl (12.0-16.0); IMMATURE GRANULOCYTES 0.1 % (0.0-5.0); LYMPH% 15.4 % (15-41); MEAN CORPUSCULAR HGB 27.4 pG CALC (26.0-32.0); MEAN CORPUSCULAR HGB CONC 30.5 g/dL CAL (32.0-36.0); MONO% 4.8 % (2-13); NEUT# 5.6 thou/uL (2.00-7.15); NEUT% 76.9 % (42-76); RED BLOOD COUNT 2.99 mill/uL (4.20-5.60); RED CELL DISTRI WIDTH 16.1 % (11.5-15.5)
[2023-01-13 13:07] LABS: ALBUMIN 3.3 g/dL (3.2-5.0); BILIRUBIN, TOTAL 0.2 mg/dL (0.02-1.3); CREATININE 3.9 mg/dL (0.5-1.0); MAGNESIUM 2.5 mg/dL (1.6-2.3); TOTAL PROTEIN 6.7 g/dL (6.3-8.2)
[2023-01-13 13:18] LABS: POTASSIUM 5.3 mmol/l (3.5-5.1)
[2023-01-13 13:39] VITALS: BP 146/75
[2023-01-13 15:28] LABS: PROTHROMBIN TIME 43.4 SECONDS (9.0-12.5)
[2023-01-13 15:29] LABS: INTERNATIONAL NORMALIZED RATIO 4.7 RATIO (0.7-1.3)
[2023-01-13 19:00] VITALS: BP 122/66
[2023-01-13 20:20] VITALS: BP 92/58
[2023-01-14] VITALS (10 sets, daily range): BP systolic 90–157; BP diastolic 37–75
[2023-01-14 05:47] LABS: URINE BILIRUBIN - DIPSTICK NEGATIVE (NEGATIVE); URINE BLOOD DIPSTICK MODERATE (NEGATIVE); URINE CLARITY SL CLOUDY; URINE COLOR YELLOW; URINE GLUCOSE - DIPSTICK NEGATIVE (NEGATIVE); URINE KETONE NEGATIVE (NEGATIVE); URINE LEUK ESTERASE SMALL (Negative); URINE NITRITE - DIPSTICK NEGATIVE (Negative); URINE PH 5.5 (4.5-8.0); URINE PROTEIN - DIPSTICK TRACE mg/dL (NEG-TRACE); URINE SPECIFIC GRAVITY 1.015; URINE UROBILINOGEN - DIPSTICK 0.2 E.U./dL (0.2)
[2023-01-14 05:52] LABS: BASO% 0.7 % (0-3); EOS% 3.9 % (0-8); HEMATOCRIT 24.6 % (37.0-47.0); HEMOGLOBIN 7.3 g/dl (12.0-16.0); IMMATURE GRANULOCYTES 0.4 % (0.0-5.0); LYMPH% 21.6 % (15-41); MEAN CELL VOLUME 90.4 fL CALC (80.0-100.0); MEAN CORPUSCULAR HGB 26.8 pG CALC (26.0-32.0); MEAN CORPUSCULAR HGB CONC 29.7 g/dL CAL (32.0-36.0); MONO% 6.7 % (2-13); NEUT# 3.77 thou/uL (2.00-7.15); NEUT% 66.7 % (42-76); RED BLOOD COUNT 2.72 mill/uL (4.20-5.60); RED CELL DISTRI WIDTH 16.2 % (11.5-15.5)
[2023-01-14 05:55] LABS: URINE AMORPH SEDIMENT FEW hpf (NONE-FEW); URINE BACTERIA FEW hpf; URINE MUCUS FEW hpf (NONE-FEW); URINE SQUAMOUS EPITHELIAL CELL FEW EPI/hpf (0-FEW)
[2023-01-14 05:59] LABS: ALBUMIN 2.8 g/dL (3.2-5.0); BILIRUBIN, TOTAL 0.2 mg/dL (0.02-1.3); CREATININE 3.6 mg/dL (0.5-1.0); MAGNESIUM 2.7 mg/dL (1.6-2.3); POTASSIUM 4.8 mmol/l (3.5-5.1)
[2023-01-14 06:00] LABS: PROTHROMBIN TIME 44.9 SECONDS (9.0-12.5)
[2023-01-14 06:11] LABS: INTERNATIONAL NORMALIZED RATIO 4.8 RATIO (0.7-1.3)
[2023-01-15] VITALS (8 sets, daily range): BP systolic 103–150; BP diastolic 34–52
[2023-01-15 06:23] LABS: BASO% 0.3 % (0-3); EOS% 4.1 % (0-8); HEMATOCRIT 27.8 % (37.0-47.0); HEMOGLOBIN 8.2 g/dl (12.0-16.0); IMMATURE GRANULOCYTES 0.3 % (0.0-5.0); LYMPH% 14.5 % (15-41); MEAN CELL VOLUME 92.7 fL CALC (80.0-100.0); MEAN CORPUSCULAR HGB 27.3 pG CALC (26.0-32.0); MEAN CORPUSCULAR HGB CONC 29.5 g/dL CAL (32.0-36.0); MONO% 5.8 % (2-13); NEUT# 5.06 thou/uL (2.00-7.15)
[2023-01-15 06:41] LABS: PROTHROMBIN TIME 32.4 SECONDS (9.0-12.5)
[2023-01-15 06:47] LABS: INTERNATIONAL NORMALIZED RATIO 3.4 RATIO (0.7-1.3)
[2023-01-15 07:01] LABS: ALBUMIN 3.1 g/dL (3.2-5.0); CREATININE 2.7 mg/dL (0.5-1.0); MAGNESIUM 2.7 mg/dL (1.6-2.3); POTASSIUM 4.8 mmol/l (3.5-5.1); TOTAL PROTEIN 6.6 g/dL (6.3-8.2)
[2023-01-15 07:08] LABS: BILIRUBIN, TOTAL 0.4 mg/dL (0.02-1.3)
[2023-01-16] VITALS (7 sets, daily range): BP systolic 99–138; BP diastolic 44–59
[2023-01-16 05:49] LABS: BASO% 0.4 % (0-3); HEMATOCRIT 26.7 % (37.0-47.0); IMMATURE GRANULOCYTES 0.9 % (0.0-5.0); LYMPH% 15.5 % (15-41); MEAN CELL VOLUME 93.7 fL CALC (80.0-100.0); MEAN CORPUSCULAR HGB 28.1 pG CALC (26.0-32.0); MONO% 6.2 % (2-13); RED BLOOD COUNT 2.85 mill/uL (4.20-5.60); RED CELL DISTRI WIDTH 16.1 % (11.5-15.5)
[2023-01-16 06:15] LABS: ALBUMIN 2.9 g/dL (3.2-5.0); MAGNESIUM 2.5 mg/dL (1.6-2.3); POTASSIUM 4.9 mmol/l (3.5-5.1); TOTAL PROTEIN 6.4 g/dL (6.3-8.2)
[2023-01-16 06:24] LABS: BILIRUBIN, TOTAL 0.2 mg/dL (0.02-1.3)
== END 2023-01-16 16:01 | DRG 682 ==
LOC: MS2 11:29
PROVIDERS: Internal Medicine Nephrology; Nurse Practitioner Family; ADMIT Internal Medicine; ATTEND Internal Medicine
PROC: 0T9B70Z Drainage of Bladder with Drainage Device, Via Natural or Artificial Opening (ICD-10-PCS; principal; 2023-01-13)
PROC: 30233N1 Transfusion of Nonautologous Red Blood Cells into Peripheral Vein, Percutaneous Approach (ICD-10-PCS; 2023-01-14)
DX: N17.9 Acute kidney failure, unspecified (principal); L89.623 Pressure ulcer of left heel, stage 3; L89.893 Pressure ulcer of other site, stage 3; I13.0 Hypertensive heart and chronic kidney disease with heart failure and stage 1 through stage 4 chronic kidney disease, or unspecified chronic kidney disease; I48.20 Chronic atrial fibrillation, unspecified; E46 Unspecified protein-calorie malnutrition; I50.22 Chronic systolic (congestive) heart failure; N39.0 Urinary tract infection, site not specified; E87.5 Hyperkalemia; E86.9 Volume depletion, unspecified; I95.9 Hypotension, unspecified; E11.22 Type 2 diabetes mellitus with diabetic chronic kidney disease; N18.32 Chronic kidney disease, stage 3b; D63.1 Anemia in chronic kidney disease; I27.20 Pulmonary hypertension, unspecified; E11.40 Type 2 diabetes mellitus with diabetic neuropathy, unspecified; L89.152 Pressure ulcer of sacral region, stage 2; D50.9 Iron deficiency anemia, unspecified; R32 Unspecified urinary incontinence; E11.65 Type 2 diabetes mellitus with hyperglycemia; E88.09 Other disorders of plasma-protein metabolism, not elsewhere classified; E83.41 Hypermagnesemia; E83.39 Other disorders of phosphorus metabolism; E03.9 Hypothyroidism, unspecified; G47.33 Obstructive sleep apnea (adult) (pediatric); E66.01 Morbid (severe) obesity due to excess calories; Z79.4 Long term (current) use of insulin; Z86.711 Personal history of pulmonary embolism; Z95.0 Presence of cardiac pacemaker; Z79.01 Long term (current) use of anticoagulants; Z89.432 Acquired absence of left foot; B96.20 Unspecified Escherichia coli [E. coli] as the cause of diseases classified elsewhere
CPT/HCPCS: J1756; P9016; Q5106 EC

== ENCOUNTER 2023-04-08 09:48 | Inpatient (IN) | payer MEDICARE, MEDICAID ==
[~2023-04-08] VITALS: Ht 167.6 cm; Wt 104.7 kg
[2023-04-08] MEDS ORDERED: JANTOVEN1 MG PO (10:36)
[2023-04-08] MEDS ORDERED: BUMETANIDE0.5 M1 PO (10:41)
[2023-04-08 10:50] VITALS: BP 146/51
[2023-04-08 10:50] LABS: BASO% 0.6 % (0-3); EOS% 4.8 % (0-8); HEMATOCRIT 33.3 % (37.0-47.0); HEMOGLOBIN 9.9 g/dl (12.0-16.0); IMMATURE GRANULOCYTES 0.4 % (0.0-5.0); LYMPH% 24.6 % (15-41); MEAN CELL VOLUME 96.5 fL CALC (80.0-100.0); MEAN CORPUSCULAR HGB 28.7 pG CALC (26.0-32.0); MEAN CORPUSCULAR HGB CONC 29.7 g/dL CAL (32.0-36.0); MONO% 5.2 % (2-13); NEUT# 4.32 thou/uL (2.00-7.15); NEUT% 64.4 % (42-76); RED BLOOD COUNT 3.45 mill/uL (4.20-5.60); RED CELL DISTRI WIDTH 16.3 % (11.5-15.5)
[2023-04-08 11:15] LABS: ALBUMIN 3.6 g/dL (3.2-5.0); BILIRUBIN, TOTAL 0.5 mg/dL (0.02-1.3); CREATININE 1.2 mg/dL (0.5-1.0); POTASSIUM 4.7 mmol/l (3.5-5.1); TOTAL PROTEIN 7.2 g/dL (6.3-8.2)
[2023-04-08] MEDS ORDERED: OMEPRAZOLE DR20 MG PO (12:08)
[2023-04-08] MEDS ORDERED: ONDANSETRON4 MG PO (12:11)
[2023-04-08] MEDS ORDERED: REMERON15 MG PO (12:12)
[2023-04-08] MEDS ORDERED: ZOLOFT100 MG PO (12:13)
[2023-04-08] MEDS ORDERED: JANTOVEN3 MG PO (12:26)
[2023-04-08] MEDS ORDERED: ULTRAM50 MG PO (12:26)
[2023-04-08] MEDS ORDERED: VIBRAMYCIN100 M2 PO (12:29)
[2023-04-08 13:10] LABS: INTERNATIONAL NORMALIZED RATIO 1.3 RATIO (0.7-1.3); PROTHROMBIN TIME 12.8 SECONDS (9.0-12.5)
[2023-04-08 18:55] VITALS: BP 125/43
[2023-04-08 19:13] VITALS: BP 142/53
[2023-04-09 00:12] VITALS: BP 143/39
[2023-04-09 00:25] LABS: URINE COLOR YELLOW
[2023-04-09 00:27] LABS: URINE BILIRUBIN - DIPSTICK NEGATIVE (NEGATIVE); URINE GLUCOSE - DIPSTICK NEGATIVE (NEGATIVE); URINE KETONE Trace mg/dL (NEGATIVE); URINE PROTEIN - DIPSTICK NEGATIVE (NEG-TRACE); URINE SPECIFIC GRAVITY 1.015; URINE UROBILINOGEN - DIPSTICK 0.2 E.U./dL (0.2)
[2023-04-09 00:28] LABS: URINE BLOOD DIPSTICK MODERATE (NEGATIVE); URINE LEUK ESTERASE SMALL (NEGATIVE); URINE NITRITE - DIPSTICK NEGATIVE (Negative)
[2023-04-09 00:58] LABS: URINE BACTERIA FEW hpf; URINE MUCUS FEW hpf (NONE-FEW); URINE SQUAMOUS EPITHELIAL CELL FEW EPI/hpf (0-FEW)
[2023-04-09 04:47] VITALS: BP 155/54
[2023-04-09 05:10] LABS: ALBUMIN 3.3 g/dL (3.2-5.0); BILIRUBIN, TOTAL 0.5 mg/dL (0.02-1.3); CREATININE 1.2 mg/dL (0.5-1.0); POTASSIUM 4.2 mmol/l (3.5-5.1); TOTAL PROTEIN 6.7 g/dL (6.3-8.2)
[2023-04-09 07:33] VITALS: BP 116/48
[2023-04-09 08:01] VITALS: BP 116/48
[2023-04-09 08:53] VITALS: BP 116/48
[2023-04-09] MEDS ORDERED: METHENAMINE HIPP1 GM PO (11:30)
[2023-04-09] MEDS ORDERED: ERTAPENEM1 G1 IV (11:30)
== END 2023-04-09 15:08 | disposition home health service (06) | DRG 699 ==
LOC: MS2 09:48
PROVIDERS: ADMIT Internal Medicine; ATTEND Internal Medicine
PROC: 0T2BX0Z Change Drainage Device in Bladder, External Approach (ICD-10-PCS; principal; 2023-04-08)
PROC: 02HV33Z Insertion of Infusion Device into Superior Vena Cava, Percutaneous Approach (ICD-10-PCS; 2023-04-09)
PROC: B518ZZA Fluoroscopy of Superior Vena Cava, Guidance (ICD-10-PCS; 2023-04-09)
DX: T83.511A Infection and inflammatory reaction due to indwelling urethral catheter, initial encounter (principal); I13.0 Hypertensive heart and chronic kidney disease with heart failure and stage 1 through stage 4 chronic kidney disease, or unspecified chronic kidney disease; Z16.12 Extended spectrum beta lactamase (ESBL) resistance; N39.0 Urinary tract infection, site not specified; B96.20 Unspecified Escherichia coli [E. coli] as the cause of diseases classified elsewhere; I50.9 Heart failure, unspecified; I48.91 Unspecified atrial fibrillation; E11.22 Type 2 diabetes mellitus with diabetic chronic kidney disease; N18.9 Chronic kidney disease, unspecified; N20.0 Calculus of kidney; E11.40 Type 2 diabetes mellitus with diabetic neuropathy, unspecified; J44.9 Chronic obstructive pulmonary disease, unspecified; E03.9 Hypothyroidism, unspecified; L89.622 Pressure ulcer of left heel, stage 2; R32 Unspecified urinary incontinence; I49.5 Sick sinus syndrome; G47.33 Obstructive sleep apnea (adult) (pediatric); E66.01 Morbid (severe) obesity due to excess calories; Y84.6 Urinary catheterization as the cause of abnormal reaction of the patient, or of later complication, without mention of misadventure at the time of the procedure; Z95.0 Presence of cardiac pacemaker; Z86.711 Personal history of pulmonary embolism; Z89.432 Acquired absence of left foot; Z87.440 Personal history of urinary (tract) infections; Z79.01 Long term (current) use of anticoagulants; Z79.4 Long term (current) use of insulin; Z87.442 Personal history of urinary calculi; Z86.14 Personal history of Methicillin resistant Staphylococcus aureus infection
CPT/HCPCS: J1335

== ENCOUNTER 2024-04-15 12:55 | Emergency (ER) | payer MEDICARE, MEDICAID ==
[~2024-04-15] VITALS: Ht 167.6 cm; Wt 110.0 kg
[~2024-04-15 12:55] MED LIST changes: +BUMETANIDE0.5 M1 PO; +CARVEDILOL25 MG PO; +ELIQUIS2.5 MG PO; +ERTAPENEM1 G1 IV; +JANTOVEN1 MG PO; +JANTOVEN3 MG PO; +LANTUS100 UNIT SC; +MEROPENEM1 GM IV; +METHENAMINE HIPP1 GM PO; +NITROFURANTN100 M2 PO; +OMEPRAZOLE DR20 MG PO; +ONDANSETRON4 MG PO; +REMERON15 MG PO; +ULTRAM50 MG PO; +VIBRAMYCIN100 M2 PO; +ZOLOFT100 MG PO
[2024-04-15 13:41] VITALS: BP 137/67
[2024-04-15 13:46] VITALS: BP 142/60
[2024-04-15 14:01] VITALS: BP 143/56
[2024-04-15] MEDS ORDERED: SODIUM CHLORIDE 0.9% 500 ML IV ONE (14:15)
[2024-04-15 14:16] VITALS: BP 124/50
[2024-04-15 14:28] LABS: BASO% 0.6 % (0-3); EOS% 4.8 % (0-8); IMMATURE GRANULOCYTES 0.4 % (0.0-5.0); MEAN CELL VOLUME 87.9 fL CALC (80.0-100.0); MEAN CORPUSCULAR HGB 26.1 pG CALC (26.0-32.0); MEAN CORPUSCULAR HGB CONC 29.7 g/dL CAL (32.0-36.0); MONO% 5.6 % (2-13); NEUT# 6.19 thou/uL (2.00-7.15); NEUT% 72.6 % (42-76); RED BLOOD COUNT 3.3 mill/uL (4.20-5.60)
[2024-04-15] MEDS ORDERED: TRANEXAMIC ACID 100 MG/ML 10ML IV ONE (14:30)
[2024-04-15 14:31] VITALS: BP 133/58
[2024-04-15 14:36] LABS: HEMOGLOBIN 8.6 g/dl (12.0-16.0)
[2024-04-15 14:40] LABS: ALBUMIN 3.9 g/dL (3.2-5.0); BILIRUBIN, TOTAL 0.4 mg/dL (0.02-1.3); POTASSIUM 4.5 mmol/l (3.5-5.1); TOTAL PROTEIN 7.5 g/dL (6.3-8.2)
[2024-04-15 14:45] LABS: CREATININE 1.2 mg/dL (0.5-1.0)
[2024-04-15 15:02] LABS: HEMATOCRIT 29.5 % (37.0-47.0); HEMOGLOBIN 8.8 g/dl (12.0-16.0)
[2024-04-15] MEDS ORDERED: PATIENT' OWN MED 1 EA DOSE IV SCH (18:00)
[2024-04-15 19:07] VITALS: BP 133/58
== END 2024-04-15 19:33 | disposition home or self-care (01) ==
LOC: ED 12:55 → ED-I 14:52 → ED 14:52
PROVIDERS: Family Medicine; Nurse Practitioner
DX: K92.2 Gastrointestinal hemorrhage, unspecified (principal); D64.9 Anemia, unspecified; I13.0 Hypertensive heart and chronic kidney disease with heart failure and stage 1 through stage 4 chronic kidney disease, or unspecified chronic kidney disease; E11.22 Type 2 diabetes mellitus with diabetic chronic kidney disease; N18.9 Chronic kidney disease, unspecified; I50.9 Heart failure, unspecified; E11.40 Type 2 diabetes mellitus with diabetic neuropathy, unspecified; I48.91 Unspecified atrial fibrillation; E03.9 Hypothyroidism, unspecified; J44.9 Chronic obstructive pulmonary disease, unspecified; Z79.4 Long term (current) use of insulin; Z95.810 Presence of automatic (implantable) cardiac defibrillator; E11.51 Type 2 diabetes mellitus with diabetic peripheral angiopathy without gangrene; I48.19 Other persistent atrial fibrillation; I50.42 Chronic combined systolic (congestive) and diastolic (congestive) heart failure; I73.9 Peripheral vascular disease, unspecified
CPT/HCPCS: Q9967

== ENCOUNTER 2024-07-02 14:17 | Emergency (ER) | payer MEDICARE, MEDICAID ==
[~2024-07-02] VITALS: Ht 167.6 cm; Wt 108.0 kg
[2024-07-02] VITALS (21 sets, daily range): BP systolic 96–145; BP diastolic 35–97
[2024-07-02 15:51] LABS: URINE BILIRUBIN - DIPSTICK Negative (NEGATIVE); URINE BLOOD DIPSTICK Trace-lysed (NEGATIVE); URINE COLOR Yellow; URINE GLUCOSE - DIPSTICK Negative (NEGATIVE); URINE KETONE Negative (NEGATIVE); URINE LEUK ESTERASE Moderate (NEGATIVE); URINE NITRITE - DIPSTICK Positive (Negative); URINE PH 5.5 (4.5-8.0); URINE PROTEIN - DIPSTICK 30 mg/dL (NEG-TRACE); URINE UROBILINOGEN - DIPSTICK 0.2 E.U./dL (0.2)
[2024-07-02 15:52] LABS: URINE BACTERIA MANY hpf; URINE SQUAMOUS EPITHELIAL CELL FEW EPI/hpf (0-FEW); URINE WBC 20-50 WBC/hpf (0-5)
[2024-07-02 16:44] LABS: BASO% 0.6 % (0-3); EOS% 5.5 % (0-8); HEMOGLOBIN 7.3 g/dl (12.0-16.0); IMMATURE GRANULOCYTES 0.6 % (0.0-5.0); LYMPH% 16.5 % (15-41); MEAN CELL VOLUME 90.6 fL CALC (80.0-100.0); MEAN CORPUSCULAR HGB 26.4 pG CALC (26.0-32.0); MEAN CORPUSCULAR HGB CONC 29.2 g/dL CAL (32.0-36.0); MONO% 5.8 % (2-13); NEUT# 5.12 thou/uL (2.00-7.15); RED BLOOD COUNT 2.76 mill/uL (4.20-5.60); RED CELL DISTRI WIDTH 16.6 % (11.5-15.5)
[2024-07-02 17:02] LABS: ALBUMIN 3.5 g/dL (3.2-5.0); BILIRUBIN, TOTAL 0.5 mg/dL (0.02-1.3); CREATININE 1.4 mg/dL (0.5-1.0); TOTAL PROTEIN 6.7 g/dL (6.3-8.2)
[2024-07-02 17:05] LABS: POTASSIUM 4.2 mmol/l (3.5-5.1)
[2024-07-02] MEDS ORDERED: ERTAPENEM 1 GM in SODIUM CHLORIDE 0.9% 50 ML IV ONE (18:20)
[2024-07-02] MEDS ORDERED: MACROBID100 M1 PO (18:27)
[2024-07-02] MEDS ORDERED: ERTAPENEM 1 GM ONE (18:35)
[2024-07-02] MEDS ORDERED: SODIUM CHLORIDE 0.9% 50 ML IV ONE (18:50)
== END 2024-07-02 19:53 | disposition home or self-care (01) ==
LOC: ED 14:17
PROVIDERS: Nurse Practitioner
DX: N39.0 Urinary tract infection, site not specified (principal); E11.22 Type 2 diabetes mellitus with diabetic chronic kidney disease; N18.9 Chronic kidney disease, unspecified; E11.40 Type 2 diabetes mellitus with diabetic neuropathy, unspecified; I50.9 Heart failure, unspecified; J44.9 Chronic obstructive pulmonary disease, unspecified; Z95.810 Presence of automatic (implantable) cardiac defibrillator; Z79.4 Long term (current) use of insulin; Z87.442 Personal history of urinary calculi; Z96.0 Presence of urogenital implants
CPT/HCPCS: J1335

== ENCOUNTER 2024-11-09 13:17 | Observation (INO) | payer MEDICARE, MEDICAID ==
[~2024-11-09] VITALS: Ht 167.6 cm; Wt 91.0 kg
[2024-11-09] VITALS (19 sets, daily range): BP systolic 90–143; BP diastolic 23–71
[~2024-11-09 13:17] MED LIST changes: +CEFEPIME2 GM IV; +DAPTOMYCIN IV; +MACROBID100 M1 PO; +SODI IV
--- NOTE | 2024-11-09 13:47 | NUR ---
PATIENT TO ER ROOM 15.
--- NOTE | 2024-11-09 14:00 | NUR ---
PATIENT LYING IN BED RESTING COMFORTABLY WITH FAMILY AT BEDSIDE.
[2024-11-09 15:45] LABS: BASO% 0.4 % (0-3); EOS% 4.1 % (0-8); HEMATOCRIT 23.1 % (37.0-47.0); IMMATURE GRANULOCYTES 0.4 % (0.0-5.0); LYMPH% 16.7 % (15-41); MEAN CELL VOLUME 90.2 fL CALC (80.0-100.0); MEAN CORPUSCULAR HGB CONC 27.7 g/dL CAL (32.0-36.0); MONO% 4.5 % (2-13); NEUT# 5.23 thou/uL (2.00-7.15); NEUT% 73.9 % (42-76); RED BLOOD COUNT 2.56 mill/uL (4.20-5.60)
[2024-11-09 15:50] LABS: HEMOGLOBIN 6.4 g/dl (12.0-16.0)
[2024-11-09 15:56] LABS: ALBUMIN 3.7 g/dL (3.2-5.0); BILIRUBIN, TOTAL 0.5 mg/dL (0.02-1.3); CREATININE 1.3 mg/dL (0.5-1.0); POTASSIUM 4.4 mmol/l (3.5-5.1); TOTAL PROTEIN 7.3 g/dL (6.3-8.2)
--- NOTE | 2024-11-09 16:00 | NUR ---
PATIENT LYING IN BED RESTING WITH NO ACUTE DISTRESS NOTED.
--- NOTE | 2024-11-09 16:30 | NUR ---
ATTEMPTED TO CALL REPORT. NURSE STATED SHE NEEDED MORE TIME. NO ACUTE DISTRESS NOTED AT THIS TIME.
--- NOTE | 2024-11-09 17:00 | NUR ---
ATTEMPTED TO CALL REPORT NURSE STATED THAT BLOOD NEEDED TO BE STARTED BEFORE BRINGING PATIENT UP. SHE IS STILL NOT READY AT THIS TIME.
[2024-11-09] MEDS ORDERED: SODIUM CHLORIDE 0.9% 1,000 ML IV ONE (17:20)
--- NOTE | 2024-11-09 17:35 | NUR ---
BLOOD STARTED AND PATIENT TAKEN TO MS ROOM 280 VIA STRETCHER.
--- NOTE | 2024-11-09 17:38 | NUR ---
BEDSIDE REPORT GIVEN TO ANNA PATIENT ASSISTED TO [facility].
--- NOTE | 2024-11-09 18:01 | NUR ---
PT ARRIVED TO UNIT VIA [employer]ER [employer]SPORT. PT UNABLE TO WALK FROM STREACHER TO BED ON HER OWN. PT ARRIVED WITH BLOOR RUNNING, RESPIRATIONS ARE EVEN AND LABORED WITH ACTIVITY. PLACED PT ON 3L OF OXYGEN SHE STATES SHE USES AT HOME. PT'S LUNGS ARE DIM AT BILATERAL LOWER LOBES, BOWEL SOUNDS ACTIVE, PEDAL WEAK TO THE TOUCH. PT HAS A PRESSURE ULCER AT RIGHT HEEL MEASURING 2'L X1' W WITH THE TISSUE BED BEING A YELLOW/WHITE IN COLOR. NO ODOR, NO DRAINAGE NOTED. PT. PT REPORTING BURNING TYPE PAIN AT LEFT HIP/GROIN AREA.
--- NOTE | 2024-11-09 18:36 | NUR ---
PTS GLUCOSE WAS 110 @1830. RN NOTIFIED.
--- NOTE | 2024-11-09 18:49 | NUR ---
COMPLETED MED REC WITH PT'S DAUGHTER AT BEDSIDE.
--- NOTE | 2024-11-09 20:00 | NUR ---
PT RECEIVED FINISHED ONE UNIT OF BLOOD. ASSESSMENT/ADMISSION COMPLETE. PT HAS A WOUND ON HER RIGHT HEEL BEING TREATED OUTPT BY HOME HEALTH. JAVIER PROPERLY HANGING WITH NO KINKS CLEAR YELLOW URINE. IV FLUSHED WITH NS AT 25ML/HR READY FOR NEXT UNIT OF BLOOD. VS WNL ON NC 2L LUNG SOUNDS DIMINISHED BUT CLEAR. CALL LIGHT WIHTIN REACH. PLAN OF CARE ONGOING.
[2024-11-09] MEDS ORDERED: MAGNESIUM HYDROXIDE 30 ML UDC PO PRN (22:20)
[2024-11-09] MEDS ORDERED: CARVEDILOL 25 MG/TAB PO SCH (22:20)
[2024-11-09] MEDS ORDERED: DEXTROSE 250 ML IV PRN ×2 (22:20)
[2024-11-09] MEDS ORDERED: ACETAMINOPHEN 325 MG/TAB PO PRN (22:20)
[2024-11-09] MEDS ORDERED: Zaleplon 5 MG/CAP PO PRN (22:20)
--- NOTE | 2024-11-09 23:00 | NUR ---
SECOND UNIT OF BLOOD TRANSFUSED. VS WNL WITH CPAP 2.5L
[2024-11-10 03:44] VITALS: BP 129/37
--- NOTE | 2024-11-10 04:36 | NUR ---
PT SLEEPING EASILY AROUSABLE NO DISTRESS NOTED ON EXAM. CALL LIGHT WITHIN REACH. PT ON CPAP.
[2024-11-10 05:41] LABS: HEMATOCRIT 26.9 % (37.0-47.0); HEMOGLOBIN 8.2 g/dl (12.0-16.0); MEAN CELL VOLUME 87.9 fL CALC (80.0-100.0); MEAN CORPUSCULAR HGB 26.8 pG CALC (26.0-32.0); MEAN CORPUSCULAR HGB CONC 30.5 g/dL CAL (32.0-36.0); RED BLOOD COUNT 3.06 mill/uL (4.20-5.60); RED CELL DISTRI WIDTH 16.6 % (11.5-15.5)
[2024-11-10 05:47] LABS: CREATININE 1.3 mg/dL (0.5-1.0); MAGNESIUM 2.3 mg/dL (1.6-2.3); POTASSIUM 4.4 mmol/l (3.5-5.1); TOTAL PROTEIN 6.2 g/dL (6.3-8.2)
[2024-11-10 05:57] LABS: BILIRUBIN, TOTAL 0.9 mg/dL (0.02-1.3)
[2024-11-10] MEDS ORDERED: LEVOTHYROXINE SODIUM 25 MCG/TAB PO SCH (06:00)
[2024-11-10] MEDS ORDERED: INSULIN LISPRO 100 UNITS/ML ML SC SCH (07:00)
[2024-11-10 07:17] VITALS: BP 111/45
--- NOTE | 2024-11-10 08:25 | NUR ---
PT LAYING FLAT IN BED WITH EYES OPEN. AXO X3. RESP EVEN AND UNLABORED. WEAK RADIAL AND PEDAL PULSES. JAVIER CATHETER IN PLACE. 18R AC SL IN PLACE. PRESSURE ULCER BANDAGE ASSESSED ON L FOOT. ACTIVE BOWEL SOUNDS IN ALL 4. PT DECLINES ANY NEEDS AT THIS TIME. PT REMINDED OF SAFETY PRECAUTIONS AND TO CALL FOR ASSISTANCE. BED IN THE LOWEST POSITION AND CALL LIGHT WITHIN REACH.
[2024-11-10] MEDS ORDERED: SERTRALINE HCL 50 MG/TAB PO SCH (09:00)
[2024-11-10] MEDS ORDERED: BUMETANIDE PO SCH (09:00)
[2024-11-10] MEDS ORDERED: INSULIN GLARGINE 100 UNITS/ML SC SCH (09:00)
[2024-11-10 09:19] VITALS: BP 111/45
[2024-11-10] MEDS ORDERED: PROTONIX40 M2 PO (09:35)
[2024-11-10] MEDS ORDERED: PREDNISONE10 MG PO (09:36)
--- NOTE | 2024-11-10 09:42 | NUR ---
REMOVED DRESSING ON LEFT FOOT PRESSURE ULCER. CLEANED ULCER WITH NORMAL SALINE, APPLIED MEDIHONEY TO WOUND BED, APPLIED NON STICK PAD, GAUZE, AND NET DRESSING ON TOP. PT TOLERATED WELL. NO DRAIANGE.
--- NOTE | 2024-11-10 11:25 | NUR ---
Discharge instructions given. Patient verbalizes understanding of same. Discharged in stable condition via Wheelchair to Home with staff. All belongings sent with pt.
== END 2024-11-10 11:16 | disposition designated cancer center or children's hospital (05) ==
LOC: ED 13:17 → ED-I 16:00 → ED 16:13 → MS2 16:14
PROVIDERS: Family Medicine; ADMIT Internal Medicine; ATTEND Internal Medicine
PROC: 30233N1 Transfusion of Nonautologous Red Blood Cells into Peripheral Vein, Percutaneous Approach (ICD-10-PCS; principal; 2024-11-09)
PROC: 30233N1 Transfusion of Nonautologous Red Blood Cells into Peripheral Vein, Percutaneous Approach (ICD-10-PCS; 2024-11-09)
DX: E11.22 Type 2 diabetes mellitus with diabetic chronic kidney disease (principal); N18.30 Chronic kidney disease, stage 3 unspecified; D63.1 Anemia in chronic kidney disease; M16.11 Unilateral primary osteoarthritis, right hip; I11.0 Hypertensive heart disease with heart failure; I50.9 Heart failure, unspecified; E11.40 Type 2 diabetes mellitus with diabetic neuropathy, unspecified; E03.9 Hypothyroidism, unspecified; J44.9 Chronic obstructive pulmonary disease, unspecified; I48.91 Unspecified atrial fibrillation; G47.33 Obstructive sleep apnea (adult) (pediatric); I27.20 Pulmonary hypertension, unspecified; E66.01 Morbid (severe) obesity due to excess calories; Z68.32 Body mass index [BMI] 32.0-32.9, adult; Z95.0 Presence of cardiac pacemaker; Z79.4 Long term (current) use of insulin
CPT/HCPCS: J1815; P9016